=== PATIENT | female | born 1975 | race Caucasian/White ===

== ENCOUNTER 2016-07-06 12:45 | Emergency (ER) | payer SELFPAY ==
[~2016-07-06] VITALS: Ht 167.6 cm; Wt 56.7 kg
[2016-07-06 12:54] VITALS: BP 124/78
[2016-07-06] MEDS ORDERED: LORAZEPAM 2 MG/ML VIAL. IV ONE (13:45)
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
== END 2016-07-06 14:00 | disposition left against medical advice (07) ==
LOC: ER 12:45
DX: S30.0XXA Contusion of lower back and pelvis, initial encounter (principal); J44.9 Chronic obstructive pulmonary disease, unspecified; F41.9 Anxiety disorder, unspecified; F20.9 Schizophrenia, unspecified; F41.0 Panic disorder [episodic paroxysmal anxiety]; F17.210 Nicotine dependence, cigarettes, uncomplicated; F12.10 Cannabis abuse, uncomplicated; Z88.2 Allergy status to sulfonamides; Z91.030 Bee allergy status; T74.21XA Adult sexual abuse, confirmed, initial encounter; Y93.89 Activity, other specified; Y92.89 Other specified places as the place of occurrence of the external cause; Y99.8 Other external cause status
CPT/HCPCS: 99284

== ENCOUNTER 2017-11-30 12:50 | Emergency (ER) | payer MEDICARE, OTHER ==
[~2017-11-30] VITALS: Ht 167.6 cm; Wt 62.1 kg
[2017-11-30] MEDS ORDERED: fentaNYL PF VIAL 100 MCG/2 ML VIAL IV ONE ×2 (13:30→16:45)
--- NOTE | 2017-11-30 14:08 | PHYS DOC ---
Past Medical History Past Medical History: Anxiety, Bipolar, COPD, Schizophrenia, Other Additional Past Medical Histor: PANIC ATTACKS,PSYCHOTIC TENDENCIES,PARALYZED STOMACH Past Surgical History: Other Additional Past Surgical Histo: KIDNEY TRANSPLANT,FISTULA L ARM,FUNDIPLICATION Alcohol Use: None Drug Use: Marijuana Adult General Chief Complaint Chief Complaint: HIP PAIN HPI HPI Patient is a 42 year old female who presents with fall last Friday injuring her left hip and was seen at [facility] and x-rays were done and states that nothing was broken. Patient states that today she was sitting style on the floor and that she heard a pop in that left hip and began to have extreme pain. Review of Systems Review of Systems Constitutional: Denies fever or chills [] Eyes: Denies change in visual acuity, redness, or eye pain [] HENT: Denies nasal congestion or sore throat [] Respiratory: Denies cough or shortness of breath [] Cardiovascular: No additional information not addressed in HPI [] GI: Denies abdominal pain, nausea, vomiting, bloody stools or diarrhea [] : Denies dysuria or hematuria [] Musculoskeletal: Denies back pain or Left hip joint pain and bruising [] Integument: Denies rash or skin lesions [] Neurologic: Denies headache, focal weakness or sensory changes [] Endocrine: Denies polyuria or polydipsia [] All other systems were reviewed and found to be within normal limits, except as documented in this note. Current Medications Current Medications Current Medications Medications (Trade) Dose Ordered Sig/Niko Start Time Stop Time Status Last Admin Dose Admin Fentanyl Citrate (Fentanyl 2ml Vial) 25 mcg 1X ONCE 11/30/17 16:45 11/30/17 16:48 DC 11/30/17 16:45 25 MCG Allergies Allergies Allergies Coded Allergies Type Severity Reaction Last Updated Verified bee venom protein (honey bee) Allergy Unknown 07/06/16 Yes Sulfa (Sulfonamide Antibiotics) Adverse Reaction Intermediate STOMACH HURTS 07/06/16 Yes Physical Exam Physical Exam Constitutional: Well developed, well nourished, no acute distress, non-toxic appearance. [] HENT: Normocephalic, atraumatic, bilateral external ears normal, oropharynx moist, no oral exudates, nose normal. [] Eyes: PERRLA, EOMI, conjunctiva normal, no discharge. [] Neck: Normal range of motion, no tenderness, supple, no stridor. [] Cardiovascular:Heart rate regular rhythm, no murmur [] Lungs & Thorax: Bilateral breath sounds clear to auscultation [] Abdomen: Bowel sounds normal, soft, no tenderness, no masses, no pulsatile masses. [] Skin: Warm, dry, no erythema, no rash. [] Back: No tenderness, no CVA tenderness. [] Extremities: left hip tenderness with bruising of different healing stages, Inward rotation of left leg, no cyanosis, no clubbing, ROM in left hip is not intact, no edema. [] Neurologic: Alert and oriented X 3, normal motor function, normal sensory function, no focal deficits noted. [] Psychologic: Affect normal, judgement normal, mood normal. [] Current Patient Data Vital Signs Vital Signs Date Time Temp Pulse Resp B/P (MAP) Pulse Ox O2 Delivery O2 Flow Rate FiO2 11/30/17 16:45 16 11/30/17 13:26 98.3 80 149/77 (101) 94 Room Air 98.3 EKG EKG [] Radiology/Procedures Radiology/Procedures Left hip x ray Impressions: [address] [address] IMAGING REPORT Signed PATIENT: ELIZABETH ARAGON ACCOUNT: [id number] : 1975 LOCATION: ER AGE: 42 SEX: F EXAM STATUS: REG ER ORD. PHYSICIAN: TYSON NICOLE APRN REASON: pain, rotation PROCEDURE: HIP LEFT 2 VIEW 2 view study of the left hip Clinical indications: Fell 2 weeks ago. Patient felt a pop in the left hip today. Increased left hip pain. FINDINGS: No acute fracture or dislocation or osteolytic process is seen. No significant arthritic change is evident. IMPRESSION: No acute fracture. Electronically signed by: Tristan Darnell MD (11/30/2017 2:25 PM) [facility] DICTATED and SIGNED BY: TRISTAN DARNELL MD DATE: 11/30/17 [id number] [place] [address] IMAGING REPORT Signed PATIENT: ELIZABETH ARAGON ACCOUNT: [id number] : 1975 LOCATION: ER AGE: 42 SEX: F EXAM STATUS: REG ER ORD. PHYSICIAN: TYSON NICOLE APRN REASON: LEFT HIP INJURY S/P FALL, PAIN. PROCEDURE: CT LOWER EXTREMITY WO LEFT CT study of the left hip without contrast Clinical indications: Status post fall with left hip injury and pain. TECHNIQUE: Noncontrast helical CT scanning of the left hip was performed. Multiplanar 2-D reconstructions were generated. PQRS compliance Statement One or more of the following individualized dose reduction techniques were utilized for this study: 1. Automated exposure control 2. Adjustment of the mA and/or kV according to patient size 3. Use of iterative reconstruction technique FINDINGS: Patient motion artifact is seen. No acute fracture or dislocation is evident. No significant arthritic change of the left hip joint is seen. No osteolytic process is evident. There is a large subcutaneous soft tissue mass of the lateral aspect of the left hip which is partially hypodense and partially hyperdense consistent with a posttraumatic hematoma. This measures 11.2 cm in AP dimension and 7.8 cm in transverse dimension and 20.5 cm in vertical dimension. This is located superficial to the iliotibial band. There is associated subcutaneous soft tissue edema. There is no fluid distention of the greater trochanteric bursa. IMPRESSION: No acute fracture. Large subcutaneous soft tissue hematoma of the lateral aspect of the left hip. Electronically signed by: Tristan Darnell MD (11/30/2017 5:01 PM) [facility] DICTATED and SIGNED BY: TRISTAN DARNELL MD DATE: 11/30/171652 Course & Med Decision Making Course & Med Decision Making Patient has a history of polycystic kidney disease of which she had a transplant and lost the transplant a year ago and now is on dialysis Friday, Friday, Friday. Patient's other history is hypertension, bipolar, schizophrenia, anxiety, gastroparesis. Upon walking into the room the patient is holding a stuffed animal and is very anxious and states that she did take 2 Klonopin before coming because she knew she was going be very anxious. She states she rates her pain 10 on 10. Upon examination patient has left hip and outer left upper thigh bruising that appears in different stages of healing. Patient's left hip and leg is rotated inward. There is focal left hip tenderness with palpation. The patient will not move the leg or the hip due to pain but does wiggle her toes and her foot. Patient has a popliteal pulse and less than 3 second cap refill with a warm extremity but the left foot pulse is weak. Patient is given 25 mcg fentanyl and a left hip x-ray is ordered. Patient denies any numbness or tingling and there is no swelling to the extremity. Skin is pink warm and dry. Patient is alert and oriented. Left hip x-ray shows no dislocation or fracture. Left hip CT shows no acute findings. Left hip showed CT just shows the posttraumatic injury bruising. Patient to be sent home and is to follow-up with her primary care physician. [] Dragon Disclaimer Dragon Disclaimer This electronic medical record was generated, in whole or in part, using a voice recognition dictation system. Departure Departure Impression: Primary Impression: Hip pain Disposition: HOME, SELF-CARE Condition: STABLE Referrals: UNKNOWN PCP NAME (PCP) KERON GHOTRA MD Patient Instructions: Hip Pain Additional Instructions: Follow-up with her primary care physician. Scripts Oxycodone Hcl (OXYCODONE HCL) 5 Mg Capsule 5 MG PO Q6HRS PRN for PAIN, #5 TAB 0 Refills Prov: TYSON NICOLE APRN 11/30/17 Problem Qualifiers Primary Impression: Hip pain Laterality: left Qualified Codes: M25.552 - Pain in left hip TYSON NICOLE APRN Nov 30, 2017 14:08
--- NOTE | 2017-11-30 14:28 | RAD ---
2 view study of the left hip Clinical indications: Fell 2 weeks ago. Patient felt a pop in the left hip today. Increased left hip pain. FINDINGS: No acute fracture or dislocation or osteolytic process is seen. No significant arthritic change is evident. IMPRESSION: No acute fracture. Electronically signed by: Lauro Darnell MD (11/30/2017 2:25 PM) [facility]
--- NOTE | 2017-11-30 17:05 | RAD ---
CT study of the left hip without contrast Clinical indications: Status post fall with left hip injury and pain. TECHNIQUE: Noncontrast helical CT scanning of the left hip was performed. Multiplanar 2-D reconstructions were generated. PQRS compliance Statement One or more of the following individualized dose reduction techniques were utilized for this study: 1. Automated exposure control 2. Adjustment of the mA and/or kV according to patient size 3. Use of iterative reconstruction technique FINDINGS: Patient motion artifact is seen. No acute fracture or dislocation is evident. No significant arthritic change of the left hip joint is seen. No osteolytic process is evident. There is a large subcutaneous soft tissue mass of the lateral aspect of the left hip which is partially hypodense and partially hyperdense consistent with a posttraumatic hematoma. This measures 11.2 cm in AP dimension and 7.8 cm in transverse dimension and 20.5 cm in vertical dimension. This is located superficial to the iliotibial band. There is associated subcutaneous soft tissue edema. There is no fluid distention of the greater trochanteric bursa. IMPRESSION: No acute fracture. Large subcutaneous soft tissue hematoma of the lateral aspect of the left hip. Electronically signed by: Lauro Darnell MD (11/30/2017 5:01 PM) [facility]
[2017-11-30] MEDS ORDERED: OXYC5CAP PO (17:20)
[2017-11-30 17:22] VITALS: BP 148/85
== END 2017-11-30 17:46 | disposition home or self-care (01) ==
LOC: ER 12:50
DX: M25.552 Pain in left hip (principal); J44.9 Chronic obstructive pulmonary disease, unspecified; F31.9 Bipolar disorder, unspecified; F20.9 Schizophrenia, unspecified; Z88.2 Allergy status to sulfonamides; Z91.030 Bee allergy status; X50.9XXA Other and unspecified overexertion or strenuous movements or postures, initial encounter; Y93.89 Activity, other specified; Y92.89 Other specified places as the place of occurrence of the external cause; Y99.8 Other external cause status
CPT/HCPCS: 73502; 73700; 96374; 96376; 99284; J3010

== ENCOUNTER 2018-05-30 11:15 | Emergency (ER) | payer MEDICARE, OTHER ==
[~2018-05-30] VITALS: Ht 167.6 cm; Wt 56.7 kg
[~2018-05-30 11:15] MED LIST: OXYC5CAP PO
[2018-05-30 11:45] VITALS: BP 139/81
[2018-05-30] MEDS ORDERED: PRED50TA PO (11:55)
[2018-05-30] MEDS ORDERED: AMOX875T PO (11:55)
--- NOTE | 2018-05-30 11:56 | PHYS DOC ---
Past Medical History Past Medical History: Anxiety, Bipolar, COPD, Schizophrenia, Other Additional Past Medical Histor: PANIC ATTACKS,PSYCHOTIC TENDENCIES,PARALYZED STOMACH Past Surgical History: Other Additional Past Surgical Histo: KIDNEY TRANSPLANT,FISTULA L ARM,FUNDIPLICATION Alcohol Use: None Drug Use: Marijuana Adult General Chief Complaint Chief Complaint: OTHER COMPLAINTS [facility] HPI Patient is a 42 year old female who presents with multiple complaints. Patient states that she was was to be seen by ENT and have a biopsy done of her throat. She states that she was unable to go to that appointment and is requesting a new referral to ENT. She states that she also has a sore throat and earache. She states that this is been worsening over the past few days to the right side. The patient also needs a refill of prednisone to help with her COPD. She states that she has been out of steroids for quite a while. Review of Systems Review of Systems Constitutional: Denies fever or chills [] Eyes: Denies change in visual acuity, redness, or eye pain [] HENT: See history of present illness Respiratory: See history of present illness Cardiovascular: No additional information not addressed in HPI [] GI: Denies abdominal pain, nausea, vomiting, bloody stools or diarrhea [] : Denies dysuria or hematuria [] Musculoskeletal: Denies back pain or joint pain [] Integument: Denies rash or skin lesions [] Neurologic: Denies headache, focal weakness or sensory changes [] Endocrine: Denies polyuria or polydipsia [] All other systems were reviewed and found to be within normal limits, except as documented in this note. Allergies Allergies Allergies Coded Allergies Type Severity Reaction Last Updated Verified bee venom protein (honey bee) Allergy Unknown 07/06/16 Yes Sulfa (Sulfonamide Antibiotics) Adverse Reaction Intermediate STOMACH HURTS 07/06/16 Yes Physical Exam Physical Exam Constitutional: Well developed, well nourished, no acute distress, non-toxic appearance. [] HENT: Normocephalic, atraumatic, bilateral tympanic membranes normal, oropharynx moist, no oral exudates, nose normal. [] Eyes: PERRLA, EOMI, conjunctiva normal, no discharge. [] Neck: Normal range of motion, no tenderness, supple, no stridor. [] Cardiovascular:Heart rate regular rhythm, no murmur [] Lungs & Thorax: Bilateral breath sounds clear to auscultation [] Abdomen: Bowel sounds normal, soft, no tenderness, no masses, no pulsatile masses. [] Skin: Warm, dry, no erythema, no rash. [] Back: No tenderness, no CVA tenderness. [] Extremities: No tenderness, no cyanosis, no clubbing, ROM intact, no edema. [] Neurologic: Alert and oriented X 3, normal motor function, normal sensory function, no focal deficits noted. [] Psychologic: Affect normal, judgement normal, mood normal. [] EKG EKG [] Radiology/Procedures Radiology/Procedures [] Course & Med Decision Making Course & Med Decision Making Pertinent Labs and Imaging studies reviewed. (See chart for details) []The patient is also requesting Diflucan. She states when she takes antibiotics she gets a yeast infection. Dragon Disclaimer Dragon Disclaimer This electronic medical record was generated, in whole or in part, using a voice recognition dictation system. Departure Departure Impression: Primary Impression: Sore throat Additional Impression: Medication refill Referrals: UNKNOWN PCP NAME (PCP) DANDY CERRATO MD Patient Instructions: Sore Throat Additional Instructions: Take the medication as directed. Follow-up with ENT for the biopsy that you missed. Follow-up with your primary care provider for future healthcare needs. Scripts Fluconazole (DIFLUCAN) 150 Mg Tablet 1 TAB PO ONCE for yeast, #1 TAB 1 Refill Prov: HEVER PATEL APRN 05/30/18 Amoxicillin (AMOXICILLIN) 875 Mg Tablet 1 TAB PO BID for pharyngitis, #20 TAB Prov: HEVER PATEL APRN 05/30/18 Prednisone (PREDNISONE) 50 Mg Tablet 1 TAB PO DAILY for copd, #5 TAB Prov: HEVER PATEL APRN 05/30/18 Problem Qualifiers HEVER PATEL APRN May 30, 2018 11:56
[2018-05-30] MEDS ORDERED: FLUC150T PO (12:13)
== END 2018-05-30 12:15 | disposition home or self-care (01) ==
LOC: ER 11:15
DX: J02.9 Acute pharyngitis, unspecified (principal); Z76.0 Encounter for issue of repeat prescription; J44.9 Chronic obstructive pulmonary disease, unspecified; F31.9 Bipolar disorder, unspecified; F20.9 Schizophrenia, unspecified; Z88.2 Allergy status to sulfonamides; Z91.030 Bee allergy status
CPT/HCPCS: 99283

== ENCOUNTER 2018-08-06 11:26 | Emergency (ER) | payer MEDICARE, OTHER ==
[~2018-08-06 11:26] MED LIST changes: +AMOX875T PO; +FLUC150T PO; +PRED50TA PO
== END 2018-08-06 11:36 | disposition left against medical advice (07) ==
LOC: ER 11:26
DX: T76.21XA Adult sexual abuse, suspected, initial encounter (principal); Z53.21 Procedure and treatment not carried out due to patient leaving prior to being seen by health care provider

== ENCOUNTER 2018-12-12 16:11 | Inpatient (IN) | payer MEDICARE ==
[~2018-12-12] VITALS: Ht 162.6 cm; Wt 67.3 kg
[2018-12-12 17:04] LABS: BASO # 0.1 x10^3/uL (0.0-0.2); BASO % 2 % (0-3); EOS # 0.2 x10^3/uL (0.0-0.7); EOS % 3 % (0-3); HEMOGLOBIN 9.2 g/dL (12.0-15.5); LYMPH # 0.9 x10^3/uL (1.0-4.8); LYMPH % 15 % (24-48); MEAN CORPUSCULAR HEMOGLOBIN 33 pg (25-35); MEAN CORPUSCULAR HGB CONC 33 g/dL (31-37); MEAN CORPUSCULAR VOLUME 99 fL (79-100); MONO # 0.4 x10^3/uL (0.0-1.1); MONO % 6 % (0-9); NEUT # 4.6 x10^3/uL (1.8-7.7); NEUT % 75 % (31-73); PLATELET COUNT 222 x10^3/uL (140-400); RED BLOOD COUNT 2.82 x10^6/uL (3.50-5.40); RED CELL DISTRIBUTION WIDTH 19.8 % (11.5-14.5); WHITE BLOOD COUNT 6.2 x10^3/uL (4.0-11.0)
[2018-12-12 17:22] LABS: ALBUMIN 3.6 g/dL (3.4-5.0); ALBUMIN/GLOBULIN RATIO 1.1 (1.0-1.7); CALCIUM 6.7 mg/dL (8.5-10.1); CREATININE 16.4 mg/dL (0.6-1.0); GFR 2.4; MAGNESIUM 2.1 mg/dL (1.8-2.4); TOTAL BILIRUBIN 0.4 mg/dL (0.2-1.0); TOTAL PROTEIN 6.8 g/dL (6.4-8.2)
[2018-12-12 17:25] LABS: POTASSIUM 7.4 mmol/L (3.5-5.1)
--- NOTE | 2018-12-12 17:45 | PHYS DOC ---
Past Medical History Past Medical History: Anxiety, Bipolar, COPD, Renal Failure, Schizophrenia, Other Additional Past Medical Histor: PANIC ATTACKS,PSYCHOTIC TENDENCIES,PARALYZED STOMACH (IVAN PEDROZA APRN) Past Surgical History: No Surgical History, Other Additional Past Surgical Histo: KIDNEY TRANSPLANT,FISTULA L ARM,FUNDIPLICATION (IVAN PEDROZA APRN) Alcohol Use: None Drug Use: Marijuana (IVAN PEDROZA APRN) Attending Signature I have participated in the care of this patient and I have reviewed and agree with all pertinent clinical information above including history, exam, and recommendations. (JAE BOWENS MD) Adult General Chief Complaint Chief Complaint: SHORTNESS OF BREATH HPI HPI Patient is a 43 year old female with history of anxiety, bipolar, COPD, schizophrenia, kidney transplant 16 years ago, end-stage renal disease on dialysis Friday last dialyzed a week ago who presents to the ED today with multiple complaints including feeling fluid overloaded with short ness of breath, bilateral lower extremity weakness, diarrhea symptoms for one week. She states she's been unable to go to dialysis because of ride issues. Patient denies any chest pain. (IVAN PEDROZA APRN) Review of Systems Review of Systems Constitutional: Denies fever or chills [] Eyes: Denies change in visual acuity, redness, or eye pain [] HENT: Denies nasal congestion or sore throat [] Respiratory: Reports shortness of breath. Denies cough Cardiovascular: No additional information not addressed in HPI [] GI: Denies abdominal pain, nausea, vomiting, bloody stools or diarrhea [] : Denies dysuria or hematuria [] Musculoskeletal: Reports bilateral lower extremity weakness. Denies back pain Integument: Denies rash or skin lesions [] Neurologic: Denies headache, focal weakness or sensory changes [] Endocrine: ESRD-dialysis All other systems were reviewed and found to be within normal limits, except as documented in this note. (IVAN PEDROZA APRN) Current Medications Current Medications Current Medications Medications (Trade) Dose Ordered Sig/Niko Start Time Stop Time Status Last Admin Dose Admin Albuterol Sulfate (Ventolin Neb Soln) 2.5 mg PRN Q4HRS PRN 12/12/18 18:00 12/12/18 18:15 2.5 MG Alprazolam (Xanax) 0.5 mg PRN Q8HRS PRN 12/12/18 18:00 12/12/18 18:25 0.5 MG Calcium Carbonate/ Glycine (Tums) 500 mg PRN AFTMEALHC PRN 12/12/18 18:00 Calcium Gluconate (Calcium Gluconate) 1,000 mg 1X ONCE 12/12/18 18:00 12/12/18 18:01 DC 12/12/18 18:18 1,000 MG Clonidine HCl (Catapres) 0.1 mg PRN Q1HR PRN 12/12/18 18:00 Dextrose (Dextrose 50%-Water Syringe) 25 gm 1X ONCE 12/12/18 18:00 12/12/18 18:01 DC 12/12/18 18:18 25 GM Diphenhydramine HCl (Benadryl) 25 mg PRN QHS PRN 12/12/18 18:00 12/12/18 18:25 25 MG Morphine Sulfate (Morphine Sulfate) 1 mg PRN Q2HR PRN 12/12/18 18:00 Ondansetron HCl (Zofran) 4 mg PRN Q6HRS PRN 12/12/18 18:00 Oxycodone HCl (Roxicodone) 5 mg PRN Q6HRS PRN 12/12/18 18:00 Sodium Bicarbonate (Sodium Bicarb Adult 8.4% Syr) 50 meq 1X ONCE 12/12/18 18:00 12/12/18 18:01 DC 12/12/18 18:25 50 MEQ (JAE BOWENS MD) Allergies Allergies Allergies Coded Allergies Type Severity Reaction Last Updated Verified bee venom protein (honey bee) Allergy Intermediate 12/12/18 Yes metoclopramide Allergy Intermediate 12/12/18 Yes Sulfa (Sulfonamide Antibiotics) Adverse Reaction Intermediate STOMACH HURTS 07/06/16 Yes (JAE BOWENS MD) Physical Exam Physical Exam Constitutional: Well developed, well nourished, no acute distress, non-toxic appearance. [] HENT: Normocephalic, atraumatic, bilateral external ears normal, oropharynx moist, no oral exudates, nose normal. [] Eyes: PERRLA, EOMI, conjunctiva normal, no discharge. [] Neck: Normal range of motion, no tenderness, supple, no stridor. [] Cardiovascular: Left upper chest with the dialysis catheter. Heart rate regular rhythm, no murmur [] Lungs & Thorax: Bilateral breath sounds clear to auscultation [] Abdomen: Bowel sounds normal, soft, no tenderness, no masses, no pulsatile masses. [] Skin: Warm, dry, no erythema, no rash. [] Back: No tenderness, no CVA tenderness. [] Extremities: No tenderness, no cyanosis, no clubbing, ROM intact, no edema. [] Neurologic: Alert and oriented X 3, normal motor function, normal sensory function, no focal deficits noted. [] Psychologic: Patient appears restless, moving around in the room with no difficulties (IVAN PEDROZA APRN) Current Patient Data Vital Signs Vital Signs Date Time Temp Pulse Resp B/P (MAP) Pulse Ox O2 Delivery O2 Flow Rate FiO2 12/12/18 17:53 86 26 151/96 (114) 99 Nasal Cannula 3.0 12/12/18 16:20 98.1 98.1 (JAE BOWENS MD) Lab Values Laboratory Tests Test 12/12/18 16:50 White Blood Count 6.2 x10^3/uL (4.0-11.0) Red Blood Count 2.82 x10^6/uL (3.50-5.40) L Hemoglobin 9.2 g/dL (12.0-15.5) L Hematocrit 28.0 % (36.0-47.0) L Mean Corpuscular Volume 99 fL (79-100) Mean Corpuscular Hemoglobin 33 pg (25-35) Mean Corpuscular Hemoglobin Concent 33 g/dL (31-37) Red Cell Distribution Width 19.8 % (11.5-14.5) H Platelet Count 222 x10^3/uL (140-400) Neutrophils (%) (Auto) 75 % (31-73) H Lymphocytes (%) (Auto) 15 % (24-48) L Monocytes (%) (Auto) 6 % (0-9) Eosinophils (%) (Auto) 3 % (0-3) Basophils (%) (Auto) 2 % (0-3) Neutrophils # (Auto) 4.6 x10^3/uL (1.8-7.7) Lymphocytes # (Auto) 0.9 x10^3/uL (1.0-4.8) L Monocytes # (Auto) 0.4 x10^3/uL (0.0-1.1) Eosinophils # (Auto) 0.2 x10^3/uL (0.0-0.7) Basophils # (Auto) 0.1 x10^3/uL (0.0-0.2) Sodium Level 139 mmol/L (136-145) Potassium Level 7.4 mmol/L (3.5-5.1) *H Chloride Level 96 mmol/L (98-107) L Carbon Dioxide Level 18 mmol/L (21-32) L Anion Gap 25 (6-14) H Blood Urea Nitrogen 113 mg/dL (7-20) H Creatinine 16.4 mg/dL (0.6-1.0) H Estimated GFR (Cockcroft-Gault) 2.4 BUN/Creatinine Ratio 7 (6-20) Glucose Level 95 mg/dL (70-99) Calcium Level 6.7 mg/dL (8.5-10.1) L Magnesium Level 2.1 mg/dL (1.8-2.4) Total Bilirubin 0.4 mg/dL (0.2-1.0) Aspartate Amino Transferase (AST) 12 U/L (15-37) L Alanine Aminotransferase (ALT) 10 U/L (14-59) L Alkaline Phosphatase 65 U/L (46-116) Creatine Kinase 175 U/L (26-192) Creatine Kinase MB (Mass) 4.2 ng/mL (0.0-3.6) H Creatine Kinase MB Relative Index 2.4 % (0-4) Troponin I Quantitative < 0.017 ng/mL (0.000-0.055) ZM-Oaa-Y-Type Natriuretic Peptide 8143 pg/mL (0-124) H Total Protein 6.8 g/dL (6.4-8.2) Albumin 3.6 g/dL (3.4-5.0) Albumin/Globulin Ratio 1.1 (1.0-1.7) Thyroid Stimulating Hormone (TSH) 4.774 uIU/mL (0.358-3.74) H Laboratory Tests 12/12/18 16:50 Laboratory Tests 12/12/18 16:50 (JAE BOWENS MD) EKG EKG [address] Wesley sinus rhythm heart rate 85 no STEMI (IVAN PEDROZA APRN) Radiology/Procedures Radiology/Procedures []PROCEDURE: PORTABLE CHEST 1V Single view chest dated 12/12/2018. No comparison available. CLINICAL INDICATION: Shortness of breath. FINDINGS: Single upright portable exam performed. Heart and mediastinal contours within normal limits. There is a dual lumen dialysis catheter in place. Lungs are somewhat hyperinflated but otherwise clear. No consolidation or pleural effusion. Old healed rib fractures on the right. No pneumothorax. IMPRESSION: No acute radiographic abnormality. Electronically signed by: Rg Devine MD (12/12/2018 6:50 PM) [facility] DICTATED and SIGNED BY: RG DEVINE MD DATE: 12/12/18 185 (IVAN PEDROZA APRN) Course & Med Decision Making Course & Med Decision Making Pertinent Labs and Imaging studies reviewed. (See chart for details) This is a 43-year-old female patient on dialysis who presents to the ED today complaining of shortness of breath, feeling fluid overloaded, weakness to bilateral lower extremities. Patient was last dialyzed a week ago. CBC with a normal WBC, hemoglobin of 9.2, hematocrit of 28, CMP with potassium 7.4, no EKG changes, creatinine 16.4, BUN 113 glucose is 95, anion gap is 25 BNP 8143, chest x-ray is negative for any acute findings. Spoke with Dr. Alvarado nephrology patient will be dialyzed today Spoke with Dr. [place] who accepted patient for admission (IVAN PEDROZA APRN) Dragon Disclaimer Dragon Disclaimer This electronic medical record was generated, in whole or in part, using a voice recognition dictation system. (IVAN PEDROZA APRN) Departure Departure Impression: Primary Impression: Hyperkalemia Additional Impression: ESRD (end stage renal disease) on dialysis Disposition: ADMITTED INPATIENT Condition: STABLE Referrals: TRISTON GUERRERO (PCP) Problem Qualifiers IVAN PEDROZA APRN Dec 12, 2018 17:45 JAE BOWENS MD Dec 12, 2018 20:41
[2018-12-12] MEDS ORDERED: CALCIUM GLUCONATE 1,000 MG/10 ML VIAL. IVP ONE (18:00)
[2018-12-12] MEDS ORDERED: oxyCODONE IR 5 MG TABLET PO PRN (18:00)
[2018-12-12] MEDS ORDERED: CALCIUM CARBONATE 500 MG TAB.CHEW PO PRN (18:00)
[2018-12-12] MEDS ORDERED: diphenhydrAMINE HCL 25 MG CAPSULE PO PRN (18:00)
[2018-12-12] MEDS ORDERED: SODIUM BICARB ADULT 8.4% 50 MEQ/50 ML DISP.SYRIN. IV ONE (18:00)
[2018-12-12] MEDS ORDERED: MORPHINE SULFATE 2 MG/ML VIAL. IV PRN (18:00)
[2018-12-12] MEDS ORDERED: DEXTROSE 50% 25 GM / 50ML DISP.SYRIN. IV ONE (18:00)
[2018-12-12] MEDS ORDERED: ALBUTEROL SULFATE 2.5 MG/3 ML NEBU. NEB PRN (18:00)
[2018-12-12] MEDS ORDERED: ONDANSETRON PF 4 MG/2 ML VIAL. IV PRN ×2 (18:00→18:45)
[2018-12-12] MEDS ORDERED: INSULIN REGULAR 100 UNIT/ML 3ML VIAL. IV ONE (18:15)
[2018-12-12] MEDS: ALPRAZolam 0.5 MG TABLET PO PRN (18:24)
--- NOTE | 2018-12-12 18:53 | RAD ---
Single view chest dated 12/12/2018. No comparison available. CLINICAL INDICATION: Shortness of breath. FINDINGS: Single upright portable exam performed. Heart and mediastinal contours within normal limits. There is a dual lumen dialysis catheter in place. Lungs are somewhat hyperinflated but otherwise clear. No consolidation or pleural effusion. Old healed rib fractures on the right. No pneumothorax. IMPRESSION: No acute radiographic abnormality. Electronically signed by: Rg Devine MD (12/12/2018 6:50 PM) [facility]
[2018-12-12] MEDS ORDERED: IV NORMAL SALINE 1000ML BAG 1,000 ML IV PRN ×2 (19:00)
[2018-12-12] MEDS ORDERED: ALBUMIN HUMAN 25% 200 ML IV PRN (19:00)
[2018-12-12] MEDS ORDERED: DIALYSIS PATIENT. MC PRN ×2 (19:15)
[2018-12-12 19:25] VITALS: BP 162/82
--- NOTE | 2018-12-12 19:25 | NUR ---
pt admitted to room 107 from ED at this time. BP elevated but otherwise VSS while on 3L/NC. pt alert and oriented x4 but forgetful, very restless and tearful. provided pt with ice chips and snack before dialysis to start, "it'll make me feel better." now pt on dialysis with dialysis nurse at bedside, pt's eyes closed and she appears more comfortable at this time. will pass on in report, will continue to closely monitor.
[2018-12-12 20:00] VITALS: BP 161/90
[2018-12-12 21:00] VITALS: BP 146/97
[2018-12-12 22:00] VITALS: BP 137/99
[2018-12-12 23:00] VITALS: BP 176/106
[2018-12-13] VITALS (14 sets, daily range): BP systolic 149–196; BP diastolic 71–119
[2018-12-13] MEDS: cloNIDine HCL 0.1 MG TABLET PO PRN ×2 (02:08→07:40)
[2018-12-13 04:37] LABS: BASO % 1 % (0-3); EOS # 0.1 x10^3/uL (0.0-0.7); EOS % 3 % (0-3); HEMOGLOBIN 9.6 g/dL (12.0-15.5); LYMPH # 0.9 x10^3/uL (1.0-4.8); LYMPH % 21 % (24-48); MEAN CORPUSCULAR HEMOGLOBIN 33 pg (25-35); MEAN CORPUSCULAR HGB CONC 33 g/dL (31-37); MEAN CORPUSCULAR VOLUME 98 fL (79-100); MONO # 0.4 x10^3/uL (0.0-1.1); MONO % 9 % (0-9); NEUT # 2.7 x10^3/uL (1.8-7.7); NEUT % 66 % (31-73); PLATELET COUNT 193 x10^3/uL (140-400); RED BLOOD COUNT 2.96 x10^6/uL (3.50-5.40); RED CELL DISTRIBUTION WIDTH 19.2 % (11.5-14.5); WHITE BLOOD COUNT 4.1 x10^3/uL (4.0-11.0)
[2018-12-13 04:48] LABS: CREATININE 8.5 mg/dL (0.6-1.0); GFR 5.1; POTASSIUM 4.4 mmol/L (3.5-5.1)
[2018-12-13] MEDS ORDERED: QUET300T7 PO (07:35)
[2018-12-13] MEDS ORDERED: CLONAZEPAM1 MG PO (07:35)
[2018-12-13] MEDS ORDERED: TRAZ-86 PO (07:35)
[2018-12-13] MEDS ORDERED: ROPI0.25 PO (07:35)
--- NOTE | 2018-12-13 07:54 | EKG ---
[facility] [address] [place] [address] Test Date: 2018-12-12 Test Time: 16:35:44 Pat Name: ELIZABETH ARAGON Department: Room: Gender: F Medical Collections: : [id number] Requested By: IVAN PEDROZA Order Number: [id number] Reading MD: Measurements Intervals [place] Rate: 85 P: 47 DC: 142 QRS: 43 QRSD: 84 T: 61 QT: 422 QTc: 502 Interpretive Statements SINUS RHYTHM PROLONGED QT NO SPECIFIC ECG ABNORMALITIES RI6.01 Unconfirmed report No previous ECG available for comparison
[2018-12-13] MEDS: ALPRAZolam 0.5 MG TABLET PO PRN ×2 (08:19→16:21)
[2018-12-13] MEDS ORDERED: traZODone 100 MG TABLET. PO PRN ×2 (08:30)
[2018-12-13] MEDS: clonazePAM 0.5 MG TABLET PO PRN ×2 (11:09→17:47)
[2018-12-13] MEDS ORDERED: NICOTINE 21MG PATCH. TD PRN (11:30)
--- NOTE | 2018-12-13 12:38 | PDOC2 ---
CONSULT Date of Consult Date of Consult DATE: 12/13/18 TIME: 12:30 Reason for Consult Reason for Consult: HIGH K, SOB AND ESRD Referring Physician Referring Physician: BISMARK Identification/Chief Complaint Chief Complaint SOB AND WEAKNESS Source Source: Chart review History of Present Illness Reason for Visit: THIS IS A 43 YR OLD ESRD PT WITH SOB. SHE IS NOTED TO HAVE SEVERE HYPERKALEMIA AND LABS C/W HER ESRD. SHE HAS SKIPPED HER HD FOR ONE WEEK. SHE HAS HAD DIARRHEA FOR ABOUT A WEEK WELL. STATES ITS DUE TO TRANSPORTATION ISSUES. ON HD NOW FOR ABOUT 3 YEARS PRIOR TO THAT SHE HAS HAD A RENAL TX WHICH WAS DONE 16 YEARS AGO. SHE CANNOT TELL ME WHY HER KIDNEYS FAILED TO START WITH Past Medical History Past Medical History NON COMPLIANCE, FAILED RENAL TX Cardiovascular: HTN Pulmonary: COPD Heme/Onc: Anemia NOS Musculoskeletal: Muscle atrophy, Weakness Renal/: Chronic renal failure, Other (ANURIA, HX OF RENAL TX) Endocrine: Hyperparathyroidism Past Surgical History Past Surgical History HX OF RENAL TX Family History Family History: Hypertension Social History 1 pack per day ALCOHOL: rare Drugs: Other (UNKNOWN WHAT SHE IS DOING NOW IF ANYTHING BUT STATES THAT SHE HAS DONE SOME DRUGS IN THE PAST) Current Problem List Problem List Problems Medical Problems: (1) ESRD (end stage renal disease) on dialysis Status: Acute (2) Hyperkalemia Status: Acute Current Medications Current Medications Current Medications Calcium Gluconate (Calcium Gluconate) 1,000 mg 1X ONCE IVP Last administered on 12/12/18at 18:18; Start 12/12/18 at 18:00; Stop 12/12/18 at 18:01; Status DC Sodium Bicarbonate (Sodium Bicarb Adult 8.4% Syr) 50 meq 1X ONCE IV Last administered on 12/12/18at 18:25; Start 12/12/18 at 18:00; Stop 12/12/18 at 18:01; Status DC Dextrose (Dextrose 50%-Water Syringe) 25 gm 1X ONCE IV Last administered on 12/12/18at 18:18; Start 12/12/18 at 18:00; Stop 12/12/18 at 18:01; Status DC Insulin Human Regular (HumuLIN R VIAL) 10 unit 1X ONCE IV Last administered on 12/12/18at 18:18; Start 12/12/18 at 18:15; Stop 12/12/18 at 18:16; Status DC Oxycodone HCl (Roxicodone) 5 mg PRN Q6HRS PRN PO PAIN; Start 12/12/18 at 18:00 Ondansetron HCl (Zofran) 4 mg PRN Q6HRS PRN IV NAUSEA/VOMITING Last administered on 12/13/18at 07:40; Start 12/12/18 at 18:00 Diphenhydramine HCl (Benadryl) 25 mg PRN QHS PRN PO INSOMNIA Last administered on 12/12/18at 18:25; Start 12/12/18 at 18:00 Clonidine HCl (Catapres) 0.1 mg PRN Q1HR PRN PO HYPERTENSION Last administered on 12/13/18at 07:40; Start 12/12/18 at 18:00 Morphine Sulfate (Morphine Sulfate) 1 mg PRN Q2HR PRN IV PAIN; Start 12/12/18 at 18:00 Calcium Carbonate/ Glycine (Tums) 500 mg PRN AFTMEALHC PRN PO INDIGESTION; Start 12/12/18 at 18:00 Alprazolam (Xanax) 0.5 mg PRN Q8HRS PRN PO ANXIETY / AGITATION Last administered on 12/13/18at 08:19; Start 12/12/18 at 18:00 Albuterol Sulfate (Ventolin Neb Soln) 2.5 mg PRN Q4HRS PRN NEB SHORTNESS OF BREATH Last administered on 12/12/18at 18:15; Start 12/12/18 at 18:00 Ondansetron HCl (Zofran) 4 mg PRN Q8HRS PRN IV NAUSEA/VOMITING; Start 12/12/18 at 18:45; Stop 12/13/18 at 18:44; Status UNV Sodium Chloride 1,000 ml @ 1,000 mls/hr Q1H PRN IV hypotension; Start 12/12/18 at 19:00; Stop 12/13/18 at 02:00; Status DC Albumin Human 200 ml @ 200 mls/hr 1X PRN PRN IV Hypotension; Start 12/12/18 at 19:00; Stop 12/13/18 at 02:00; Status DC Sodium Chloride 1,000 ml @ 400 mls/hr Q2H30M PRN IV PATENCY; Start 12/12/18 at 19:00; Stop 12/13/18 at 02:00; Status DC Info (PHARMACY MONITORING -- do not chart) 1 each PRN DAILY PRN MC SEE COMMENTS; Start 12/12/18 at 19:15; Status UNV Info (PHARMACY MONITORING -- do not chart) 1 each PRN DAILY PRN MC SEE COMMENTS; Start 12/12/18 at 19:15 Quetiapine Fumarate (SEROquel XR) 300 mg QHS PO ; Start 12/13/18 at 21:00 Ropinirole HCl (Requip) 0.25 mg HS PO ; Start 12/13/18 at 21:00 Trazodone HCl (Desyrel) 100 mg PRN QHS PRN PO INSOMNIA; Start 12/13/18 at 08:30 Trazodone HCl (Desyrel) 200 mg PRN QHS PRN PO INSOMNIA; Start 12/13/18 at 08:30 Clonazepam (KlonoPIN) 1 mg PRN TID PRN PO ANXIETY / AGITATION Last administered on 12/13/18at 11:09; Start 12/13/18 at 08:30 Nicotine (Nicoderm Cq 21mg) 1 patch PRN DAILY PRN TD SMOKING CESSATION Last administered on 12/13/18at 11:27; Start 12/13/18 at 11:30 Active Scripts Active Reported Clonazepam 1 Mg Tablet 1 Mg PO TID PRN PRN Trazodone Hcl 100 Mg Tablet 200 Mg PO PRN QHS PRN Trazodone Hcl 100 Mg Tablet 1 Tab PO PRN QHS PRN Requip (Ropinirole Hcl) 0.25 Mg Tablet 0.25 Mg PO HS Seroquel Xr (Quetiapine Fumarate) 300 Mg Tab.er.24h 1 Tab PO QHS Allergies Allergies: Coded Allergies: bee venom protein (honey bee) (Verified Allergy, Intermediate, 12/12/18) metoclopramide (Verified Allergy, Intermediate, 12/12/18) Sulfa (Sulfonamide Antibiotics) (Verified Adverse Reaction, Intermediate, STOMACH HURTS, 07/06/16) ROS General: YES: Fatigue, Malaise, Appetite PSYCHOLOGICAL ROS: YES: Anxiety, Depression Eyes: Yes Decreased vision HEENT: YES: Heacaches Respiratory: YES: Cough, Orthopnea, Shortness of breath, SOB with excertion Cardiovascular: yes Lt Headedness Gastrointestinal: Yes Nausea, Yes Diarrhea Genitourinary: YES Other (ANURIA) Musculoskeletal: Yes Joint Stiffness, Yes Muscular Weakness Neurological: Yes Weakness Skin: Yes Dry Skin Physical Exam General: Alert, Oriented X3, Cooperative, No acute distress HEENT: Atraumatic, PERRLA Lungs: Clear to auscultation Heart: Regular rate, Normal S1, Normal S2, No murmurs Abdomen: Normal bowel sounds, Soft, No tenderness Extremities: No cyanosis Skin: No breakdown Neuro: Normal speech, Sensation intact Psych/Mental Status: Mental status NL, Mood NL MUSCULOSKELETAL: No joint tenderness, No deformity, No swelling Vitals VITALS Vital Signs Date Time Temp Pulse Resp B/P (MAP) Pulse Ox O2 Delivery O2 Flow Rate FiO2 12/13/18 11:17 76 16 163/95 (117) Nasal Cannula 3.0 12/13/18 07:48 100 12/13/18 07:08 99.0 99.0 Labs Labs Laboratory Tests Test 12/12/18 16:50 12/12/18 22:00 12/13/18 04:00 White Blood Count 6.2 x10^3/uL (4.0-11.0) 4.1 x10^3/uL (4.0-11.0) Red Blood Count 2.82 x10^6/uL (3.50-5.40) 2.96 x10^6/uL (3.50-5.40) Hemoglobin 9.2 g/dL (12.0-15.5) 9.6 g/dL (12.0-15.5) Hematocrit 28.0 % (36.0-47.0) 29.0 % (36.0-47.0) Mean Corpuscular Volume 99 fL (79-100) 98 fL (79-100) Mean Corpuscular Hemoglobin 33 pg (25-35) 33 pg (25-35) Mean Corpuscular Hemoglobin Concent 33 g/dL (31-37) 33 g/dL (31-37) Red Cell Distribution Width 19.8 % (11.5-14.5) 19.2 % (11.5-14.5) Platelet Count 222 x10^3/uL (140-400) 193 x10^3/uL (140-400) Neutrophils (%) (Auto) 75 % (31-73) 66 % (31-73) Lymphocytes (%) (Auto) 15 % (24-48) 21 % (24-48) Monocytes (%) (Auto) 6 % (0-9) 9 % (0-9) Eosinophils (%) (Auto) 3 % (0-3) 3 % (0-3) Basophils (%) (Auto) 2 % (0-3) 1 % (0-3) Neutrophils # (Auto) 4.6 x10^3/uL (1.8-7.7) 2.7 x10^3/uL (1.8-7.7) Lymphocytes # (Auto) 0.9 x10^3/uL (1.0-4.8) 0.9 x10^3/uL (1.0-4.8) Monocytes # (Auto) 0.4 x10^3/uL (0.0-1.1) 0.4 x10^3/uL (0.0-1.1) Eosinophils # (Auto) 0.2 x10^3/uL (0.0-0.7) 0.1 x10^3/uL (0.0-0.7) Basophils # (Auto) 0.1 x10^3/uL (0.0-0.2) 0.0 x10^3/uL (0.0-0.2) Sodium Level 139 mmol/L (136-145) 140 mmol/L (136-145) Potassium Level 7.4 mmol/L (3.5-5.1) 3.9 mmol/L (3.5-5.1) 4.4 mmol/L (3.5-5.1) Chloride Level 96 mmol/L (98-107) 99 mmol/L (98-107) Carbon Dioxide Level 18 mmol/L (21-32) 29 mmol/L (21-32) Anion Gap 25 (6-14) 12 (6-14) Blood Urea Nitrogen 113 mg/dL (7-20) 48 mg/dL (7-20) Creatinine 16.4 mg/dL (0.6-1.0) 8.5 mg/dL (0.6-1.0) Estimated GFR (Cockcroft-Gault) 2.4 5.1 BUN/Creatinine Ratio 7 (6-20) Glucose Level 95 mg/dL (70-99) 117 mg/dL (70-99) Calcium Level 6.7 mg/dL (8.5-10.1) 8.0 mg/dL (8.5-10.1) Magnesium Level 2.1 mg/dL (1.8-2.4) Total Bilirubin 0.4 mg/dL (0.2-1.0) Aspartate Amino Transf (AST/SGOT) 12 U/L (15-37) Alanine Aminotransferase (ALT/SGPT) 10 U/L (14-59) Alkaline Phosphatase 65 U/L (46-116) Creatine Kinase 175 U/L (26-192) Creatine Kinase MB (Mass) 4.2 ng/mL (0.0-3.6) Creatine Kinase MB Relative Index 2.4 % (0-4) Troponin I Quantitative < 0.017 ng/mL (0.000-0.055) RS-Yss-H-Type Natriuretic Peptide 8143 pg/mL (0-124) Total Protein 6.8 g/dL (6.4-8.2) Albumin 3.6 g/dL (3.4-5.0) Albumin/Globulin Ratio 1.1 (1.0-1.7) Thyroid Stimulating Hormone (TSH) 4.774 uIU/mL (0.358-3.74) Hepatitis B Surface Antigen Nonreactive (Nonreactive) Hepatitis B Surface Antibody Reactive Laboratory Tests Test 12/12/18 16:50 12/12/18 22:00 12/13/18 04:00 White Blood Count 6.2 x10^3/uL (4.0-11.0) 4.1 x10^3/uL (4.0-11.0) Red Blood Count 2.82 x10^6/uL (3.50-5.40) 2.96 x10^6/uL (3.50-5.40) Hemoglobin 9.2 g/dL (12.0-15.5) 9.6 g/dL (12.0-15.5) Hematocrit 28.0 % (36.0-47.0) 29.0 % (36.0-47.0) Mean Corpuscular Volume 99 fL (79-100) 98 fL (79-100) Mean Corpuscular Hemoglobin 33 pg (25-35) 33 pg (25-35) Mean Corpuscular Hemoglobin Concent 33 g/dL (31-37) 33 g/dL (31-37) Red Cell Distribution Width 19.8 % (11.5-14.5) 19.2 % (11.5-14.5) Platelet Count 222 x10^3/uL (140-400) 193 x10^3/uL (140-400) Neutrophils (%) (Auto) 75 % (31-73) 66 % (31-73) Lymphocytes (%) (Auto) 15 % (24-48) 21 % (24-48) Monocytes (%) (Auto) 6 % (0-9) 9 % (0-9) Eosinophils (%) (Auto) 3 % (0-3) 3 % (0-3) Basophils (%) (Auto) 2 % (0-3) 1 % (0-3) Neutrophils # (Auto) 4.6 x10^3/uL (1.8-7.7) 2.7 x10^3/uL (1.8-7.7) Lymphocytes # (Auto) 0.9 x10^3/uL (1.0-4.8) 0.9 x10^3/uL (1.0-4.8) Monocytes # (Auto) 0.4 x10^3/uL (0.0-1.1) 0.4 x10^3/uL (0.0-1.1) Eosinophils # (Auto) 0.2 x10^3/uL (0.0-0.7) 0.1 x10^3/uL (0.0-0.7) Basophils # (Auto) 0.1 x10^3/uL (0.0-0.2) 0.0 x10^3/uL (0.0-0.2) Sodium Level 139 mmol/L (136-145) 140 mmol/L (136-145) Potassium Level 7.4 mmol/L (3.5-5.1) 3.9 mmol/L (3.5-5.1) 4.4 mmol/L (3.5-5.1) Chloride Level 96 mmol/L (98-107) 99 mmol/L (98-107) Carbon Dioxide Level 18 mmol/L (21-32) 29 mmol/L (21-32) Anion Gap 25 (6-14) 12 (6-14) Blood Urea Nitrogen 113 mg/dL (7-20) 48 mg/dL (7-20) Creatinine 16.4 mg/dL (0.6-1.0) 8.5 mg/dL (0.6-1.0) Estimated GFR (Cockcroft-Gault) 2.4 5.1 BUN/Creatinine Ratio 7 (6-20) Glucose Level 95 mg/dL (70-99) 117 mg/dL (70-99) Calcium Level 6.7 mg/dL (8.5-10.1) 8.0 mg/dL (8.5-10.1) Magnesium Level 2.1 mg/dL (1.8-2.4) Total Bilirubin 0.4 mg/dL (0.2-1.0) Aspartate Amino Transf (AST/SGOT) 12 U/L (15-37) Alanine Aminotransferase (ALT/SGPT) 10 U/L (14-59) Alkaline Phosphatase 65 U/L (46-116) Creatine Kinase 175 U/L (26-192) Creatine Kinase MB (Mass) 4.2 ng/mL (0.0-3.6) Creatine Kinase MB Relative Index 2.4 % (0-4) Troponin I Quantitative < 0.017 ng/mL (0.000-0.055) TR-Wcf-W-Type Natriuretic Peptide 8143 pg/mL (0-124) Total Protein 6.8 g/dL (6.4-8.2) Albumin 3.6 g/dL (3.4-5.0) Albumin/Globulin Ratio 1.1 (1.0-1.7) Thyroid Stimulating Hormone (TSH) 4.774 uIU/mL (0.358-3.74) Hepatitis B Surface Antigen Nonreactive (Nonreactive) Hepatitis B Surface Antibody Reactive Assessment/Plan Assessment/Plan IMP ESRD-TTS HYPOXIA CHF-DIASTOLIC VOLUME OVERLOAD HYPERKALEMIA NON COMPLIANCE ANEMIA OF ESRD HX OF FAILED RENAL TX 16 YEARS AGO ? HX OF DRUG USE O2 DEPENDENT COPD PLAN EMERGENT HD DONE LAST NIGHT SUPPLEMENTAL 02 ENC COMPLIANCE ARANESP CONT HOME MEDS MITCH RIVERA MD Dec 13, 2018 12:38
--- NOTE | 2018-12-13 15:35 | NUR ---
This RN received report from DAKOTA Ybarra in the ICU at approx 1435. Pt arrived on unit at approx 1515 via wheelchair. Pt oriented to room, call light, and her belongings. This RN provided the pt with ice chips. Will continue to monitor.
[2018-12-13] MEDS ORDERED: QUEtiapine 300 MG TAB.ER.24H. PO SCH (21:00)
[2018-12-13] MEDS ORDERED: rOPINIRole 0.25 MG TABLET. PO SCH (21:00)
[2018-12-13] MEDS ORDERED: DARBEPOETIN ALFA 60 MCG/0.3 ML DISP.SYRIN. SQ SCH (21:00)
[2018-12-14 03:12] VITALS: BP 147/83
--- NOTE | 2018-12-14 04:47 | HP ---
ADMIT DATE: 12/12/2018 CHIEF COMPLAINT: Shortness of breath. HISTORY OF PRESENT ILLNESS: The patient is a pleasant 43-year-old female, who is supposed to be on dialysis, but she has not gone to dialysis for over a week. She presented with volume overload and shortness of breath. Indeed, she also has hyperkalemia of 7.4. She has been admitted for emergent dialysis. PAST MEDICAL HISTORY: Noncompliance, end-stage renal disease, bipolar, anxiety, psychotic tendencies, "paralyzed stomach," panic attacks, renal transplant, left arm fistula, fundoplication. ALLERGIES: SULFA, BEE VENOM, METOCLOPRAMIDE. FAMILY HISTORY: Coronary artery disease. SOCIAL HISTORY: I think she still smokes. No drinking or drugs. MEDICATIONS: Reviewed, please refer to the MRAD. REVIEW OF SYSTEMS: Unable to obtain. The patient is too confused. PHYSICAL EXAMINATION: VITALS: Within normal limits and are stable. GENERAL: No apparent distress. Alert and oriented. HEENT: Head is normocephalic, atraumatic, pupils were equally round and reactive to light and accommodation. NECK: Supple, no JVD, no thyromegaly was noted. LUNGS: Clear to auscultation in all lung [place] without rhonchi or wheezing. HEART: RRR, S1, S2 present. Peripheral pulses intact, no obvious murmurs were noted. ABDOMEN: Soft, nontender. Positive bowel sounds no organomegaly, normal bowel sounds. EXTREMITIES: Without any cyanosis, clubbing, or edema. Pedal pulses intact, Homans sign is negative. NEUROLOGIC: She seems to be confused. She is talking, but really all she wants to talk about is can she go get a cigarette. She did try to climb out of bed and the nurses here are trying to help her. PSYCHIATRIC: Normal affect, normal mood. Stable. SKIN: No ulcerations or rashes, good skin turgor, no jaundice. VASCULAR: Good capillary refill, neurovascular bundle appears to be intact. LABORATORY DATA: Hemoglobin is 9.2, BUN is 48, creatinine 8.5, potassium 7.4. ASSESSMENT AND PLAN: Severe hyperkalemia and volume overload. The patient has been admitted. We are doing emergent dialysis. We have consulted Nephrology. We will try to resume her home meds when appropriate. ICU monitoring, frequent labs, PT, OT, DVT prophylaxis. Full code. PROGNOSIS: Guarded. MATILDE NIELSEN DO DR: YOMI/galileo JOB#: [id number] / [id number]
[2018-12-14 07:00] VITALS: BP 143/82
[2018-12-14 07:46] LABS: HEMATOCRIT 28.3 % (36.0-47.0); RED BLOOD COUNT 2.83 x10^6/uL (3.50-5.40); RED CELL DISTRIBUTION WIDTH 19.1 % (11.5-14.5); WHITE BLOOD COUNT 4.1 x10^3/uL (4.0-11.0)
[2018-12-14 08:20] LABS: CALCIUM 7.2 mg/dL (8.5-10.1); CREATININE 10.6 mg/dL (0.6-1.0); GFR 3.9; POTASSIUM 4.9 mmol/L (3.5-5.1)
[2018-12-14] MEDS ORDERED: ALBU2.5V8 NEB (08:20)
[2018-12-14] MEDS ORDERED: ALPR0.5T6 PO (08:20)
[2018-12-14] MEDS ORDERED: Nicotine 21MG TD (08:20)
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
[2018-12-14 10:53] VITALS: BP 149/93
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
--- NOTE | 2018-12-14 13:44 | PDOC ---
SUBJECTIVE ROS Cough +, states ready to leave OBJECTIVE Vital Signs Vital Signs Date Time Temp Pulse Resp B/P (MAP) Pulse Ox O2 Delivery O2 Flow Rate FiO2 12/14/18 10:53 97.8 88 18 149/93 (111) 93 Room Air 97.8 12/13/18 20:00 3.0 I & 0 Intake and Output 12/14/18 07:00 Intake Total 700 ml Output Total 0 ml Balance 700 ml Intake Oral 700 ml Output Urine Total 0 ml # Voids 1 PHYSICAL EXAM Physical Exam General: No acute distress HEENT: OM moist Lungs: Clear to auscultation Heart: Regular rate, Normal S1, Normal S2, No murmurs Abdomen: NT Extremities: No edema Skin: No rash Neuro: Grossly normal DIAGNOSIS/ASSESSMENT Assessment & Plan ESRD-TTS Emergent HD last week Currently no indication Continue HD as OP per her schedule Hypoxia -stable CHF-Diastolic Hyperkalemia @ presentation Emergent hemodialysis was done Non Compliance Anemia 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 HX of drug use Dcing home today COMMENT/RELEVANT DATA Meds Current Medications Medications (Trade) Dose Ordered Sig/Niko Start Time Stop Time Status Last Admin Dose Admin Albumin Human 200 ml @ 200 mls/hr 1X PRN PRN 12/12/18 19:00 12/13/18 02:00 DC Albuterol Sulfate (Ventolin Neb Soln) 2.5 mg PRN Q4HRS PRN 12/12/18 18:00 12/14/18 13:27 DC 12/12/18 18:15 2.5 MG Alprazolam (Xanax) 0.5 mg PRN Q8HRS PRN 12/12/18 18:00 12/14/18 13:27 DC 12/13/18 16:21 0.5 MG Calcium Carbonate/ Glycine (Tums) 500 mg PRN AFTMEALHC PRN 12/12/18 18:00 12/14/18 13:27 DC Calcium Gluconate (Calcium Gluconate) 1,000 mg 1X ONCE 12/12/18 18:00 12/12/18 18:01 DC 12/12/18 18:18 1,000 MG Clonazepam (KlonoPIN) 1 mg PRN TID PRN 12/13/18 08:30 12/14/18 13:27 DC 12/13/18 17:47 1 MG Clonidine HCl (Catapres) 0.1 mg PRN Q1HR PRN 12/12/18 18:00 12/14/18 13:27 DC 12/13/18 07:40 0.1 MG Darbepoetin Uriel (ARANESP for DIALYSIS PTS) 60 mcg WEEKLYHS 12/13/18 21:00 12/14/18 13:27 DC 12/13/18 22:11 60 MCG Dextrose (Dextrose 50%-Water Syringe) 25 gm 1X ONCE 12/12/18 18:00 12/12/18 18:01 DC 12/12/18 18:18 25 GM Diphenhydramine HCl (Benadryl) 25 mg PRN QHS PRN 12/12/18 18:00 12/14/18 13:27 DC 12/12/18 18:25 25 MG Info (PHARMACY MONITORING -- do not chart) 1 each PRN DAILY PRN 12/12/18 19:15 12/14/18 13:27 DC Insulin Human Regular (HumuLIN R VIAL) 10 unit 1X ONCE 12/12/18 18:15 12/12/18 18:16 DC 12/12/18 18:18 10 UNIT Morphine Sulfate (Morphine Sulfate) 1 mg PRN Q2HR PRN 12/12/18 18:00 12/14/18 13:27 DC Nicotine (Nicoderm Cq 21mg) 1 patch PRN DAILY PRN 12/13/18 11:30 12/14/18 13:27 DC 12/13/18 11:27 1 PATCH Ondansetron HCl (Zofran) 4 mg PRN Q8HRS PRN 12/12/18 18:45 12/13/18 18:44 UNV Oxycodone HCl (Roxicodone) 5 mg PRN Q6HRS PRN 12/12/18 18:00 12/14/18 13:27 DC Quetiapine Fumarate (SEROquel XR) 300 mg QHS 12/13/18 21:00 12/14/18 13:27 DC 12/13/18 22:11 300 MG Ropinirole HCl (Requip) 0.25 mg HS 12/13/18 21:00 12/14/18 13:27 DC 12/13/18 22:11 0.25 MG Sodium Bicarbonate (Sodium Bicarb Adult 8.4% Syr) 50 meq 1X ONCE 12/12/18 18:00 12/12/18 18:01 DC 12/12/18 18:25 50 MEQ Sodium Chloride 1,000 ml @ 400 mls/hr Q2H30M PRN 12/12/18 19:00 12/13/18 02:00 DC Trazodone HCl (Desyrel) 200 mg PRN QHS PRN 12/13/18 08:30 12/14/18 13:27 DC Lab Laboratory Tests Test 12/14/18 06:15 White Blood Count 4.1 x10^3/uL (4.0-11.0) Red Blood Count 2.83 x10^6/uL (3.50-5.40) Hemoglobin 9.0 g/dL (12.0-15.5) Hematocrit 28.3 % (36.0-47.0) Mean Corpuscular Volume 100 fL (79-100) Mean Corpuscular Hemoglobin 32 pg (25-35) Mean Corpuscular Hemoglobin Concent 32 g/dL (31-37) Red Cell Distribution Width 19.1 % (11.5-14.5) Platelet Count 149 x10^3/uL (140-400) Sodium Level 139 mmol/L (136-145) Potassium Level 4.9 mmol/L (3.5-5.1) Chloride Level 100 mmol/L (98-107) Carbon Dioxide Level 22 mmol/L (21-32) Anion Gap 17 (6-14) Blood Urea Nitrogen 57 mg/dL (7-20) Creatinine 10.6 mg/dL (0.6-1.0) Estimated GFR (Cockcroft-Gault) 3.9 Glucose Level 83 mg/dL (70-99) Calcium Level 7.2 mg/dL (8.5-10.1) Results All relevant outside records, renal labs, imaging studies, telemetry/EKG's were reviewed. REYNOLD ZHU MD Dec 14, 2018 13:44
== END 2018-12-14 13:26 | disposition home or self-care (01) | DRG 640 ==
LOC: ER 16:11 → 1 WEST ICU 18:09 → 5 SOUTH 12-13 15:17
PROVIDERS: ADMIT Internal Medicine; ATTEND Internal Medicine
PROC: 5A1D70Z Performance of Urinary Filtration, Intermittent, Less than 6 Hours Per Day (ICD-10-PCS; principal; 2018-12-12)
DX: E87.5 Hyperkalemia (principal); N18.6 End stage renal disease; Z94.0 Kidney transplant status; I13.2 Hypertensive heart and chronic kidney disease with heart failure and with stage 5 chronic kidney disease, or end stage renal disease; I50.32 Chronic diastolic (congestive) heart failure; E87.70 Fluid overload, unspecified; J44.9 Chronic obstructive pulmonary disease, unspecified; F31.9 Bipolar disorder, unspecified; F41.9 Anxiety disorder, unspecified; F20.9 Schizophrenia, unspecified; R09.02 Hypoxemia; E21.3 Hyperparathyroidism, unspecified; D63.1 Anemia in chronic kidney disease; G25.81 Restless legs syndrome; F17.200 Nicotine dependence, unspecified, uncomplicated; Z91.19 Patient's noncompliance with other medical treatment and regimen; Z99.2 Dependence on renal dialysis; Z88.2 Allergy status to sulfonamides; Z88.8 Allergy status to other drugs, medicaments and biological substances; Z91.030 Bee allergy status; Z82.49 Family history of ischemic heart disease and other diseases of the circulatory system; Z99.81 Dependence on supplemental oxygen
CPT/HCPCS: 36415; 71045; 80048; 80053; 82553; 83735; 83880; 84132; 84443; 84484; 85025; 85027; 86704; 86706; 87340; 93005; 94640; 96374; 96375; J0610; J0882; J1815; J2405; J7042; J7613; Q0163; 99285-25; G0378

== ENCOUNTER 2019-03-26 11:54 | Emergency (ER) | payer MEDICARE ==
[~2019-03-26] VITALS: Ht 154.9 cm; Wt 49.9 kg
[~2019-03-26 11:54] MED LIST changes: +ALBU2.5V8 NEB; +ALPR0.5T6 PO; +CLONAZEPAM1 MG PO; +Nicotine 21MG TD; +QUET300T7 PO; +ROPI0.25 PO; +TRAZ-86 PO
[2019-03-26 13:13] VITALS: BP 100/59
[2019-03-26] MEDS ORDERED: HYDR-3164 PO (15:12)
[2019-03-26] MEDS ORDERED: FLUC150T PO (15:12)
[2019-03-26] MEDS ORDERED: AMOX875T PO (15:12)
[2019-03-26] MEDS ORDERED: OFLO5DRO7 AS (15:12)
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
== END 2019-03-26 15:18 | disposition home or self-care (01) ==
LOC: ER 11:54
DX: N18.6 End stage renal disease (principal); H60.392 Other infective otitis externa, left ear; K08.89 Other specified disorders of teeth and supporting structures; J44.9 Chronic obstructive pulmonary disease, unspecified; F31.9 Bipolar disorder, unspecified; F20.9 Schizophrenia, unspecified; Z94.0 Kidney transplant status; Z99.2 Dependence on renal dialysis; Z88.2 Allergy status to sulfonamides; Z88.1 Allergy status to other antibiotic agents; Z91.030 Bee allergy status
CPT/HCPCS: 99283

== ENCOUNTER 2019-07-17 10:45 | Emergency (ER) | payer MEDICARE ==
[~2019-07-17] VITALS: Ht 167.6 cm; Wt 58.0 kg
[~2019-07-17 10:45] MED LIST changes: +HYDR-3164 PO; +OFLO5DRO7 AS; -QUET300T7 PO; +QUET300T89 PO; +TRAZ-123 PO; -TRAZ-86 PO
[2019-07-17 10:55] VITALS: BP 144/76
[2019-07-17] MEDS ORDERED: fentaNYL PF VIAL 100 MCG/2 ML VIAL IM ONE (11:15)
[2019-07-17] MEDS ORDERED: LIDOCAINE 1% Multi-Dose 20 ML VIAL. INJ ONE (11:15)
--- NOTE | 2019-07-17 11:43 | RAD ---
PROCEDURE: HAND RIGHT 3V STUDY DATE: 07/17/2019 CLINICAL INDICATION / HISTORY: Right hand pain and swelling after patient fell. TECHNIQUE: PA, lateral and oblique views of the right hand. COMPARISON: No relevant comparisons currently available FINDINGS: Complete dislocation and slight proximal override of the middle phalanx of the third digit relative to the proximal phalanx is identified. In addition, there is evidence of an acute fracture through the distal phalanx of the third digit. healed fracture of the proximal fourth phalanx is present status post dorsal plate and screw construct fixation. IMPRESSION: 1. Acute transverse fracture of the distal phalanx third digit. 2. Acute dislocation of the third digit at the PIP joint with dorsal displacement and slight proximal override. Electronically signed by: Nicanor Paulino MD (07/17/2019 11:40 AM) [id number]
--- NOTE | 2019-07-17 12:01 | PHYS DOC ---
Past Medical History Past Medical History: Anxiety, Bipolar, COPD, Renal Failure, Schizophrenia, Other Additional Past Medical Histor: PANIC ATTACKS,PSYCHOTIC TENDENCIES,PARALYZED STOMACH Past Surgical History: No Surgical History, Other Additional Past Surgical Histo: KIDNEY TRANSPLANT,FISTULA L ARM,FUNDIPLICATION Smoking Status: Current Every Day Smoker Additional Information: 5-6 cigarettes daily Alcohol Use: None Drug Use: Marijuana General Adult EDM: Chief Complaint: FINGER INJURY HPI: HPI: Patient is a right-handed 43 year old female with history of anxiety and depression, bipolar disorder, chronic renal failure on dialysis, COPD, schizophrenia, panic attack, psychotic tendencies who presents with complaining of right hand injury. Patient states she had an accidental fall from standing position without head injury or loss of consciousness and injured her right hand and complaining of severe pain in her right hand. Patient denies other injuries and using drugs and alcohol. Patient states she missed her dialysis the last time and plans to go for scheduled dialysis today at 1230. Review of Systems: Review of Systems: Constitutional: Denies fever or chills. [] Eyes: Denies change in visual acuity. [] HENT: Denies nasal congestion or sore throat. [] Respiratory: Denies cough or shortness of breath. [] Cardiovascular: Denies chest pain or edema. [] GI: Denies abdominal pain, nausea, vomiting, bloody stools or diarrhea. [] : Denies dysuria. [] Musculoskeletal: Denies back pain, report joint pain. [] Integument: Denies rash. [] Neurologic: Denies headache, focal weakness or sensory changes. [] Endocrine: Denies polyuria or polydipsia. [] Lymphatic: Denies swollen glands. [] Psychiatric: Denies depression or anxiety. [] Heart Score: Risk Factors: Risk Factors: DM, Current or recent (<one month) smoker, HTN, HLP, family history of CAD, obesity. Risk Scores: Score 0 - 3: 2.5% MACE over next 6 weeks - Discharge Home Score 4 - 6: 20.3% MACE over next 6 weeks - Admit for Clinical Observation Score 7 - 10: 72.7% MACE over next 6 weeks - Early Invasive Strategies Current Medications: Current Medications Medications (Trade) Dose Ordered Sig/Niko Start Time Stop Time Status Last Admin Dose Admin Fentanyl Citrate (Fentanyl 2ml Vial) 50 mcg 1X ONCE 07/17/19 11:15 07/17/19 11:16 DC 07/17/19 11:35 50 MCG Lidocaine HCl (Lidocaine 1% 20ml Vial) 20 ml 1X ONCE 07/17/19 11:15 07/17/19 11:29 DC 07/17/19 11:33 20 ML Allergies: Allergies: Allergies Coded Allergies Type Severity Reaction Last Updated Verified bee venom protein (honey bee) Allergy Intermediate 12/12/18 Yes metoclopramide Allergy Intermediate 12/12/18 Yes Sulfa (Sulfonamide Antibiotics) Adverse Reaction Intermediate STOMACH HURTS 07/06/16 Yes Physical Exam: PE: Constitutional: Well developed, well nourished, mild distress, non-toxic appearance. [] HENT: Normocephalic, atraumatic. Eyes: PERRLA, EOMI, conjunctiva normal, no discharge. [] Neck: Normal range of motion, no tenderness, supple, no stridor. [] Cardiovascular:Heart rate regular rhythm, no murmur [] Lungs & Thorax: Bilateral breath sounds clear to auscultation [] Extremities: Right hand with contusion of dorsal side of palm between first and second metacarpal area, right middle finger with deformity and dislocation of PIP joint, tenderness of distal phalanx of middle finger, no neurovascular deficit Neurologic: Alert and oriented X 3, no focal deficits noted. [] Psychologic: Affect very anxious, mood normal. [] Current Patient Data: Vital Signs: Vital Signs Date Time Temp Pulse Resp B/P (MAP) Pulse Ox O2 Delivery O2 Flow Rate FiO2 07/17/19 11:35 20 96 Room Air 07/17/19 10:55 97.8 70 144/76 (98) 97.8 EKG: EKG: [] Radiology/Procedures: Radiology/Procedures: [][facility] [address] [place], [place] [id number] IMAGING REPORT Signed PATIENT: ELIZABETH ARAGON ACCOUNT: [id number] : 1975 LOCATION: ER AGE: 43 SEX: F EXAM STATUS: PRE ER ORD. PHYSICIAN: JONNY MARINA MD REASON: injury, PT FELL, RT HAND PAIN AND SWELLING PROCEDURE: HAND RIGHT 3V PROCEDURE: HAND RIGHT 3V STUDY DATE: 07/17/2019 CLINICAL INDICATION / HISTORY: Right hand pain and swelling after patient fell. TECHNIQUE: PA, lateral and oblique views of the right hand. COMPARISON: No relevant comparisons currently available FINDINGS: Complete dislocation and slight proximal override of the middle phalanx of the third digit relative to the proximal phalanx is identified. In addition, there is evidence of an acute fracture through the distal phalanx of the third digit. healed fracture of the proximal fourth phalanx is present status post dorsal plate and screw construct fixation. IMPRESSION: 1. Acute transverse fracture of the distal phalanx third digit. 2. Acute dislocation of the third digit at the PIP joint with dorsal displacement and slight proximal override. Electronically signed by: Marlee Paulino MD (07/17/2019 11:40 AM) [id number] DICTATED and SIGNED BY: MARLEE PAULINO MD DATE: 07/17/19 1140 [facility] [address] [address] IMAGING REPORT Signed PATIENT: ELIZABETH ARAGON ACCOUNT: [id number] : 1975 LOCATION: ER AGE: 43 SEX: F EXAM STATUS: PRE ER ORD. PHYSICIAN: JONNY MARINA MD REASON: Post reduction PROCEDURE: FINGER(S) RIGHT PROCEDURE: FINGER(S) RIGHT STUDY DATE: 07/17/2019 CLINICAL INDICATION / HISTORY: Post reduction. TECHNIQUE: Right middle finger - 3 Views: PA, oblique, and lateral views were obtained. COMPARISON: Right hand x-rays same day FINDINGS: Nondisplaced fracture of the distal phalanx of the right third digit is redemonstrated associated with mild diffuse soft tissue swelling. The displaced dislocation of the proximal interphalangeal joint of the right third digit has since been successfully reduced, now in anatomic alignment. Dorsal plate and screw fixation of the proximal phalanx right fourth digit is incidentally noted, unchanged. IMPRESSION: Right third finger. Reduction of the PIP joint dislocation and no change in alignment of the nondisplaced fracture through the distal third phalanx. Electronically signed by: Marlee Paulino MD (07/17/2019 12:20 PM) [id number] DICTATED and SIGNED BY: MARLEE PAULINO MD DATE: 07/17/19 1220 Course & Med Decision Making: Course & Med Decision Making Pertinent Imaging studies reviewed. (See chart for details) Evaluation of patient inertial 43-year-old female patient with history of extensive psychiatric problem and chronic renal failure on dialysis with a fall and injury to right hand. Patient had dislocation of PIP of right middle finger that was reduced with digital block. Aluminium foam finger splint was applied and patient was advised to follow-up with her dialysis today. I've spoken with the patient and/or caregivers. I've explained the patient's condition, diagnosis and treatment plan based on information available to me at this time. I've answered the patient's and/or caregivers questions and addressed any concerns. The patient and/or caregivers have a good understanding the patient's diagnosis, condition and treatment plan as can be expected at this point. Vital signs have been stabilized. The patient's condition is stable for discharge from the emergency department. The patient will pursue further outpatient evaluation with her primary care provider or other designated consulting physician as outlined in the discharge instructions. Patient and/or caregivers are agreeable to this plan of care and follow-up instructions have been explained in detail. The patient and/or caregivers have received these instructions in written format and expressed understanding of these discharge instructions. The patient and her caregivers are aware that if any significant change in condition or worsening of symptoms should prompt him to immediately return to this of the closest emergency department. If an emergent department is not readily available I would encourage him to call 911. Levi Disclaimer: Levi Disclaimer: This electronic medical record was generated, in whole or in part, using a voice recognition dictation system. Departure Departure Impression: Primary Impression: Dislocation of right middle finger Qualified Codes: S63.252A - Unspecified dislocation of right middle finger, initial encounter Additional Impressions: Closed fracture of distal phalanx of right middle finger Qualified Codes: S62.662A - Nondisplaced fracture of distal phalanx of right middle finger, initial encounter for closed fracture ESRD (end stage renal disease) on dialysis Anxiety Non-compliance Contusion of right hand Qualified Codes: S60.221A - Contusion of right hand, initial encounter Fall at home Qualified Codes: W19.XXXD - Unspecified fall, subsequent encounter; Y92.009 - Unspecified place in unspecified non-institutional (private) residence as the place of occurrence of the external cause Disposition: 01 HOME, SELF-CARE (At 1230) Condition: IMPROVED Referrals: TRISTON GUERRERO (PCP) IAM MATHIS MD Patient Instructions: Anxiety and Panic Attacks, Dialysis, Fall Prevention and Home Safety, Finger Dislocation, [id number], Finger Fracture (Phalangeal)- SportsMed, Hand Contusion, Kidney Failure, [id number] Additional Instructions: Follow-up with your dialysis as scheduled today Follow-up with your primary care physician in 3-5 days Return to ER if not getting better Follow-up with orthopedic physician in 3 to 5 days Thank you for visiting [facility]. We appreciate you trusting us with your care. If any additional problems come up don't hesitate to return to visit us. Please follow up with your primary care provider so they can plan additional care if needed and know about the problem that you had. If symptoms worsen come back to the Emergency Department. Any concerning symptoms that start such as chest pain, shortness of air, weakness or numbness on one side of the body, running high fevers or any other concerning symptoms return to the ER. Scripts Hydrocodone/Apap 5-325 (NORCO 5-325 TABLET) 1 Each Tablet 1 TAB PO PRN Q6HRS PRN for PAIN, #10 TAB 0 Refills Prov: JONNY MARINA MD 07/17/19 Joint Reduction Procedure Joint Indication: Right middle finger PIP dislocation Consent: Consent was obtained. Procedure: The pre-reduction exam showed distal perfusion and neurologic function to be normal. Digital block with 2% lidocaine was given. The patient was placed in the appropriate position. Reduction of right middle finger dislocation was performed with manipulation and extraction. Post reduction films were obtained and revealed satisfactory reduction. A post-reduction exam reveal ed distal perfusion and neurologic function to be normal. The affected area was immobilized with finger immobilization The patient tolerated the procedure well. Complications: none. JONNY MARINA MD Jul 17, 2019 12:00
--- NOTE | 2019-07-17 12:23 | RAD ---
PROCEDURE: FINGER(S) RIGHT STUDY DATE: 07/17/2019 CLINICAL INDICATION / HISTORY: Post reduction. TECHNIQUE: Right middle finger - 3 Views: PA, oblique, and lateral views were obtained. COMPARISON: Right hand x-rays same day FINDINGS: Nondisplaced fracture of the distal phalanx of the right third digit is redemonstrated associated with mild diffuse soft tissue swelling. The displaced dislocation of the proximal interphalangeal joint of the right third digit has since been successfully reduced, now in anatomic alignment. Dorsal plate and screw fixation of the proximal phalanx right fourth digit is incidentally noted, unchanged. IMPRESSION: Right third finger. Reduction of the PIP joint dislocation and no change in alignment of the nondisplaced fracture through the distal third phalanx. Electronically signed by: Nicanor Paulino MD (07/17/2019 12:20 PM) [id number]
[2019-07-17] MEDS ORDERED: HYDR-3164 PO (12:33)
== END 2019-07-17 13:00 | disposition home or self-care (01) ==
LOC: ER 10:45
DX: S63.282A Dislocation of proximal interphalangeal joint of right middle finger, initial encounter (principal); S62.662A Nondisplaced fracture of distal phalanx of right middle finger, initial encounter for closed fracture; N18.6 End stage renal disease; J44.9 Chronic obstructive pulmonary disease, unspecified; F20.9 Schizophrenia, unspecified; F31.9 Bipolar disorder, unspecified; F17.210 Nicotine dependence, cigarettes, uncomplicated; Z99.2 Dependence on renal dialysis; Z94.0 Kidney transplant status; Z88.2 Allergy status to sulfonamides; Z91.030 Bee allergy status; Z88.8 Allergy status to other drugs, medicaments and biological substances; W18.39XA Other fall on same level, initial encounter; Y93.89 Activity, other specified; Y92.89 Other specified places as the place of occurrence of the external cause; Y99.8 Other external cause status
CPT/HCPCS: 26725; 73130; 73140; 96372; 99284; J3010; J3490

== ENCOUNTER 2019-08-23 22:35 | Inpatient (IN) | payer MEDICARE, OTHER ==
[~2019-08-23] VITALS: Ht 167.6 cm; Wt 61.8 kg
--- NOTE | 2019-08-23 23:31 | PHYS DOC ---
Past Medical History Past Medical History: Anxiety, Bipolar, COPD, Renal Failure, Schizophrenia, Other Additional Past Medical Histor: PANIC ATTACKS,PSYCHOTIC TENDENCIES,PARALYZED STOMACH Past Surgical History: No Surgical History, Other Additional Past Surgical Histo: KIDNEY TRANSPLANT,FISTULA L ARM,FUNDIPLICATION Smoking Status: Current Every Day Smoker Alcohol Use: None Drug Use: Marijuana General Adult EDM: Chief Complaint: SHORTNESS OF BREATH HPI: HPI: Patient is a 43 year old female who presents with numerous complaints, the worst of which is that her butt itches really bad. Patient states he has been scratching it so much that it feels like it is raw. She is not sure why it feels so itchy. She also complains of sores in her mouth but states that she has been prescribed some numbing medicine for that. She denies any fever. She denies any chest pain or shortness of breath. Patient does admit to a history of methamphetamine abuse but denies any use of it for about the last month. Patient is on dialysis for end-stage renal disease and states that her last dialysis was on Friday. [] Review of Systems: Review of Systems: Constitutional: Denies fever or chills. [] Respiratory: Denies cough or shortness of breath. [] Cardiovascular: Denies chest pain or edema. [] Integument: Positive pruritus. [] Neurologic: Denies headache, focal weakness or sensory changes. [] A full 10 point review of systems has been reviewed and is otherwise negative. Heart Score: Risk Factors: Risk Factors: DM, Current or recent (<one month) smoker, HTN, HLP, family history of CAD, obesity. Risk Scores: Score 0 - 3: 2.5% MACE over next 6 weeks - Discharge Home Score 4 - 6: 20.3% MACE over next 6 weeks - Admit for Clinical Observation Score 7 - 10: 72.7% MACE over next 6 weeks - Early Invasive Strategies Allergies: Allergies: Allergies Coded Allergies Type Severity Reaction Last Updated Verified bee venom protein (honey bee) Allergy Intermediate 12/12/18 Yes metoclopramide Allergy Intermediate 12/12/18 Yes Sulfa (Sulfonamide Antibiotics) Adverse Reaction Intermediate STOMACH HURTS 07/06/16 Yes Physical Exam: PE: Constitutional: Well developed, well nourished, no acute distress, non-toxic appearance. [] HENT: Normocephalic, atraumatic, bilateral external ears normal, oropharynx moist, no oral exudates, nose normal. [] Eyes: PERRLA, EOMI, conjunctiva normal, no discharge. [] Neck: Normal range of motion, no tenderness, supple. [] Cardiovascular: Regular rate and rhythm [] Lungs & Thorax: Bilateral breath sounds clear to auscultation [] Abdomen: Bowel sounds normal, soft, no tenderness. [] Skin: Warm, dry, no erythema. Examination of patient's buttocks, demonstrates some mild excoriations and erythema [] Extremities: No tenderness, no cyanosis, no clubbing, ROM intact, no edema. [] Neurologic: Alert and oriented X 3, no focal deficits noted. [] Psychologic: Patient appears anxious and hyperkinetic on exam. [] Current Patient Data: Vital Signs: Vital Signs Date Time Temp Pulse Resp B/P (MAP) Pulse Ox O2 Delivery O2 Flow Rate FiO2 08/23/19 22:52 97.9 95 16 127/82 (97) 98 Room Air 97.9 EKG: EKG: [] Radiology/Procedures: Radiology/Procedures: [] Course & Med Decision Making: Course & Med Decision Making Pertinent Labs and Imaging studies reviewed. (See chart for details) [] Dragon Disclaimer: Dragon Disclaimer: This electronic medical record was generated, in whole or in part, using a voice recognition dictation system. Departure Departure Impression: Primary Impression: ESRD (end stage renal disease) on dialysis Additional Impression: Hyperkalemia Disposition: ADMITTED INPATIENT Admitting Physician: HIMMarian Condition: IMPROVED Referrals: TRISTON GUERRERO (PCP) LADI DURANT Jr. DO August 23, 2019 23:31
[2019-08-23 23:36] LABS: BASO # 0.1 x10^3/uL (0.0-0.2); BASO % 1 % (0-3); EOS # 0.1 x10^3/uL (0.0-0.7); EOS % 2 % (0-3); HEMATOCRIT 40.6 % (36.0-47.0); HEMOGLOBIN 13.2 g/dL (12.0-15.5); LYMPH # 2.1 x10^3/uL (1.0-4.8); LYMPH % 28 % (24-48); MEAN CORPUSCULAR HEMOGLOBIN 32 pg (25-35); MEAN CORPUSCULAR HGB CONC 33 g/dL (31-37); MEAN CORPUSCULAR VOLUME 97 fL (79-100); MONO # 0.5 x10^3/uL (0.0-1.1); MONO % 6 % (0-9); NEUT # 4.7 x10^3/uL (1.8-7.7); NEUT % 62 % (31-73); PLATELET COUNT 177 x10^3/uL (140-400); RED CELL DISTRIBUTION WIDTH 20.1 % (11.5-14.5); WHITE BLOOD COUNT 7.5 x10^3/uL (4.0-11.0)
[2019-08-23 23:49] LABS: ALBUMIN 3.8 g/dL (3.4-5.0); ALBUMIN/GLOBULIN RATIO 1.2 (1.0-1.7); CALCIUM 8.6 mg/dL (8.5-10.1); CREATININE 14.1 mg/dL (0.6-1.0); GFR 2.8; TOTAL BILIRUBIN 0.3 mg/dL (0.2-1.0); TOTAL PROTEIN 6.9 g/dL (6.4-8.2)
[2019-08-23 23:53] LABS: POTASSIUM 6.3 mmol/L (3.5-5.1)
[2019-08-24] MEDS ORDERED: HYDROCORTISONE 1% TOPICAL OINTMENT 30GM TUBE. TP ONE
[2019-08-24 00:27] LABS: ANISOCYTOSIS MOD; PLT ESTIMATE ADEQUATE (ADEQUATE)
[2019-08-24] MEDS ORDERED: DEXTROSE 50% 25 GM / 50ML DISP.SYRIN. IV ONE (01:00)
[2019-08-24] MEDS ORDERED: SODIUM POLYSTYRENE SULFON/SORB 15 GM/60 ML ORAL.SUSP PO ONE (01:00)
[2019-08-24] MEDS ORDERED: INSULIN REGULAR 100 UNIT/ML 3ML VIAL. IV ONE (01:00)
[2019-08-24] MEDS ORDERED: SODIUM BICARB ADULT 8.4% 50 MEQ/50 ML DISP.SYRIN. IV ONE (01:00)
[2019-08-24] MEDS ORDERED: ONDANSETRON PF 4 MG/2 ML VIAL. IV PRN ×2 (01:15→09:15)
[2019-08-24 03:55] VITALS: BP 137/68
--- NOTE | 2019-08-24 05:05 | EKG ---
[facility] [address] [place] [address] Test Date: 2019-08-24 Test Time: 00:55:02 Pat Name: ELIZABETH ARAGON Department: Room: 2 Gender: F Cereal Maker: : 1975 Requested By: LADI DURANT Order Number: [id number] Reading MD: Dc Smith Measurements Intervals Gentry Rate: 73 P: 52 ND: 0 QRS: 79 QRSD: 188 T: 114 QT: 460 QTc: 511 Interpretive Statements SINUS RHYTHM Electronically Signed On 08-24-2019 15:52:30 CDT by Dc Smith
[2019-08-24] MEDS: METOPROLOL TART IMMED RELEASE 25 MG TABLET. PO SCH ×2 (06:32→20:52)
[2019-08-24 07:00] VITALS: BP 105/81
[2019-08-24] MEDS ORDERED: IV NORMAL SALINE 1000ML BAG 1,000 ML IV PRN ×2 (09:06)
--- NOTE | 2019-08-24 09:07 | PDOC1 ---
History and Physical Date of Admission Date of Admission DATE: 08/24/19 TIME: 08:58 Identification/Chief Complaint Chief Complaint Rectal itching Source Source: Patient History of Present Illness History of Present Illness Ms Bertrand is a 43 yo F w/ PMHx Anxiety, Bipolar, COPD, Schizophrenia, smoker, ESRD s/p failed renal transplant who presents with numerous complaints, gluteal pruritis is her highest priority complaint. Patient states he has been scratching it so much that it feels like it is raw. She is not sure why it feels so itchy. She also complains of sores in her mouth but states that she has been prescribed some numbing medicine for that. She denies any fever. She denies any chest pain or shortness of breath. Patient does admit to a history of methamphetamine abuse but denies any use of it for about the last month. States her last dialysis was on 08/21/2019. EKG with long ME and LBBB, no STEMI or twave abnormalities Labs significant for NA 137, K6.3, BUN 91, CR 14.1, glucose 126, WBC 7.5, Hb 13.2, platelets 177. She was given Kayexalate, insulin and D50 for hyperkalemia and admitted for further care. Past Medical History Cardiovascular: HTN Pulmonary: COPD Heme/Onc: Anemia NOS Musculoskeletal: Muscle atrophy, Weakness Renal/: Chronic renal failure, Other Endocrine: Hyperparathyroidism Past Surgical History Past Surgical History: Other (renal transplant) Family History Family History: Hypertension Social History Smoke: 1 pack per day ALCOHOL: rare Drugs: Other Current Problem List Problem List Problems Medical Problems: (1) ESRD (end stage renal disease) on dialysis Status: Acute (2) Hyperkalemia Status: Acute Current Medications Current Medications Current Medications Hydrocortisone (Cortaid) 1 carlos 1X ONCE TP Last administered on 08/23/19at 23:38; Start 08/24/19 at 00:00; Stop 08/24/19 at 00:01; Status DC Sodium Polystyrene Sulfonate (Kayexalate) 15 gm 1X ONCE PO Last administered on 08/24/19at 01:00; Start 08/24/19 at 01:00; Stop 08/24/19 at 01:01; Status DC Insulin Human Regular (HumuLIN R VIAL) 10 unit 1X ONCE IV Last administered on 08/24/19at 01:07; Start 08/24/19 at 01:00; Stop 08/24/19 at 01:01; Status DC Dextrose (Dextrose 50%-Water Syringe) 25 gm 1X ONCE IV Last administered on 08/24/19at 01:03; Start 08/24/19 at 01:00; Stop 08/24/19 at 01:01; Status DC Sodium Bicarbonate (Sodium Bicarb Adult 8.4% Syr) 50 meq 1X ONCE IV Last administered on 08/24/19at 01:03; Start 08/24/19 at 01:00; Stop 08/24/19 at 01:01; Status DC Ondansetron HCl (Zofran) 4 mg PRN Q8HRS PRN IV NAUSEA/VOMITING 1ST CHOICE; Start 08/24/19 at 01:15; Stop 08/25/19 at 01:14 Lorazepam (Ativan Inj) 2 mg 1X ONCE IVP Last administered on 08/24/19at 01:49; Start 08/24/19 at 02:00; Stop 08/24/19 at 02:01; Status DC Metoprolol Tartrate (Lopressor) 12.5 mg BID PO Last administered on 08/24/19at 06:32; Start 08/24/19 at 05:00 Active Scripts Active [place] 5-325 Tablet (Acetaminophen/Hydrocodone Bitart) 1 Each Tablet 1 Tab PO PRN Q6HRS PRN [place] 5-325 Tablet (Acetaminophen/Hydrocodone Bitart) 1 Each Tablet 1 Tab PO Q6- 8HRS PRN [Nicotine 21MG] 1 PATCH Patch 1 Patch TD PRN DAILY PRN Proair Hfa (Albuterol Sulfate) 8.5 Gm Hfa.aer.ad 2.5 Mg NEB PRN Q4HRS PRN 30 Days Alprazolam 0.5 Mg Tablet 0.5 Mg PO PRN Q8HRS PRN Reported Clonazepam 1 Mg Tablet 1 Mg PO TID PRN PRN Trazodone Hcl 100 Mg Tablet 1 Tab PO PRN QHS PRN Requip (Ropinirole Hcl) 0.25 Mg Tablet 0.25 Mg PO HS Seroquel Xr (Quetiapine Fumarate) 300 Mg Tab.er.24h 1 Tab PO QHS Allergies Allergies: Coded Allergies: bee venom protein (honey bee) (Verified Allergy, Intermediate, 12/12/18) metoclopramide (Verified Allergy, Intermediate, 12/12/18) Sulfa (Sulfonamide Antibiotics) (Verified Adverse Reaction, Intermediate, STOMACH HURTS, 07/06/16) ROS General: YES: Fatigue, Malaise; No: Chills, Night Sweats, Appetite, Other PSYCHOLOGICAL ROS: YES: Anxiety, Behavioral Disorder, Concentration difficultie ; No: Decreased libido, Depression, Disorientation, Hallucinations, Hostility, Irritablity, Memory difficulties, Mood Swings, Obsessive thoughts, Physical abuse, Sexual abuse, Sleep disturbances, Suicidal ideation, Other Eyes: No Blurry vision, No Decreased vision, No Double vision, No Dry eyes, No Excessive tearing, No Eye Pain, No Itchy Eyes, No Loss of vision, No Photophobia, No Scotomata, No Uses contacts, No Uses glasses, No Other HEENT: No: Heacaches, Visual Changes, Hearing change, Nasal congestion, Nasal discharge, Oral lesions, Sinus pain, Sore Throat, Epistaxis, Sneezing, Snoring, Tinnitus, Vertigo, Vocal changes, Other ALLERGY AND IMMUNOLOGY: No: Hives, Insect Bite Sensitivity, Itchy/Watery Eyes, Nasal Congestion, Post Nasal Drip, Seasonal Allergies, Other Hematological and Lymphatic: No: Bleeding Problems, Blood Clots, Blood T ransfusions, Brusing, Night Sweats, Pallor, Swollen Lymph Nodes, Other ENDOCRINE: No: Breast Changes, Galactorrhea, Hair Pattern Changes, Hot Flashes, Malaise/lethargy, Mood Swings, Palpitations, Polydipsia/polyuria, Skin Changes, Temperature Intolerance, Unexpected Weight Changes, Other Breast: No New/Changing Breast Lumps, No Nipple changes, No Nipple discharge, No Other Respiratory: No: Cough, Hemoptysis, Orthopnea, Pleuritic Pain, Shortness of breath, SOB with excertion, Sputum Changes, Stridor, Tachypnea, Wheezing, Other Cardiovascular: No Chest Pain, No Palpitations, No Orthopnea, No Paroxysmal Noc. Dyspnea, No Edema, No Lt Headedness, No Other Gastrointestinal: Yes Other (Rectal itching); No Nausea, No Vomiting, No Abdominal Pain, No Diarrhea, No Constipation, No Melena, No Hematochezia Genitourinary: No Dysuria, No Frequency, No Incontinence, No Hematuria, No Retention, No Discharge, No Urgency, No Pain, No Flank Pain, No Other, No , No , No , No , No , No , No Musculoskeletal: No Gait Disturbance, No Joint Pain, No Joint Stiffness, No Joint Swelling, No Muscle Pain, No Muscular Weakness, No Pain In:, No Swelling In:, No Other Neurological: No Behavorial Changes, No Bowel/Bladder ControlChng, No Confusion, No Dizziness, No Gait Disturbance, No Headaches, No Impaired Coord/balance, No Memory Loss, No Numbness/Tingling, No Seizures, No Speech Problems, No Tremors, No Visual Changes, No Weakness, No Other Skin: No Dry Skin, No Eczema, No Hair Changes, No Lumps, No Mole Changes, No Mottling, No Nail Changes, No Pruritus, No Rash, No Skin Lesion Changes, No Other, No Acne Physical Exam General: Alert, Cooperative, No acute distress HEENT: Atraumatic, PERRLA, EOMI, Mucous membr. moist/pink Lungs: Clear to auscultation, Normal air movement Heart: S1S2, RRR, no thrills, no rubs, no gallops, no murmurs Abdomen: Normal bowel sounds, Soft, No tenderness, No hepatosplenomegaly, No masses Rectal Exam: hemorrhoids Extremities: No clubbing, No cyanosis, No edema, Normal pulses, No tenderness/swelling Skin: No rashes, No breakdown, No significant lesion Neuro: Normal gait, Normal speech, Strength at 5/5 X4 ext, Normal tone, Sensation intact, Cranial nerves 3-12 NL, Reflexes 2+ Vitals Vitals Vital Signs Date Time Temp Pulse Resp B/P (MAP) Pulse Ox O2 Delivery O2 Flow Rate FiO2 08/24/19 07:00 97.7 86 19 105/81 (89) 98 Room Air 97.7 Labs Labs Laboratory Tests Test 08/23/19 23:27 08/24/19 05:24 White Blood Count 7.5 x10^3/uL (4.0-11.0) Red Blood Count 4.20 x10^6/uL (3.50-5.40) Hemoglobin 13.2 g/dL (12.0-15.5) Hematocrit 40.6 % (36.0-47.0) Mean Corpuscular Volume 97 fL (79-100) Mean Corpuscular Hemoglobin 32 pg (25-35) Mean Corpuscular Hemoglobin Concent 33 g/dL (31-37) Red Cell Distribution Width 20.1 % (11.5-14.5) Platelet Count 177 x10^3/uL (140-400) Neutrophils (%) (Auto) 62 % (31-73) Lymphocytes (%) (Auto) 28 % (24-48) Monocytes (%) (Auto) 6 % (0-9) Eosinophils (%) (Auto) 2 % (0-3) Basophils (%) (Auto) 1 % (0-3) Neutrophils # (Auto) 4.7 x10^3/uL (1.8-7.7) Lymphocytes # (Auto) 2.1 x10^3/uL (1.0-4.8) Monocytes # (Auto) 0.5 x10^3/uL (0.0-1.1) Eosinophils # (Auto) 0.1 x10^3/uL (0.0-0.7) Basophils # (Auto) 0.1 x10^3/uL (0.0-0.2) Platelet Estimate Adequate (ADEQUATE) Anisocytosis Mod Sodium Level 137 mmol/L (136-145) Potassium Level 6.3 mmol/L (3.5-5.1) 6.3 mmol/L (3.5-5.1) Chloride Level 97 mmol/L (98-107) Carbon Dioxide Level 23 mmol/L (21-32) Anion Gap 17 (6-14) Blood Urea Nitrogen 91 mg/dL (7-20) Creatinine 14.1 mg/dL (0.6-1.0) Estimated GFR (Cockcroft-Gault) 2.8 BUN/Creatinine Ratio 6 (6-20) Glucose Level 126 mg/dL (70-99) Calcium Level 8.6 mg/dL (8.5-10.1) Total Bilirubin 0.3 mg/dL (0.2-1.0) Aspartate Amino Transf (AST/SGOT) 15 U/L (15-37) Alanine Aminotransferase (ALT/SGPT) 16 U/L (14-59) Alkaline Phosphatase 66 U/L (46-116) Total Protein 6.9 g/dL (6.4-8.2) Albumin 3.8 g/dL (3.4-5.0) Albumin/Globulin Ratio 1.2 (1.0-1.7) Laboratory Tests Test 08/23/19 23:27 08/24/19 05:24 White Blood Count 7.5 x10^3/uL (4.0-11.0) Red Blood Count 4.20 x10^6/uL (3.50-5.40) Hemoglobin 13.2 g/dL (12.0-15.5) Hematocrit 40.6 % (36.0-47.0) Mean Corpuscular Volume 97 fL (79-100) Mean Corpuscular Hemoglobin 32 pg (25-35) Mean Corpuscular Hemoglobin Concent 33 g/dL (31-37) Red Cell Distribution Width 20.1 % (11.5-14.5) Platelet Count 177 x10^3/uL (140-400) Neutrophils (%) (Auto) 62 % (31-73) Lymphocytes (%) (Auto) 28 % (24-48) Monocytes (%) (Auto) 6 % (0-9) Eosinophils (%) (Auto) 2 % (0-3) Basophils (%) (Auto) 1 % (0-3) Neutrophils # (Auto) 4.7 x10^3/uL (1.8-7.7) Lymphocytes # (Auto) 2.1 x10^3/uL (1.0-4.8) Monocytes # (Auto) 0.5 x10^3/uL (0.0-1.1) Eosinophils # (Auto) 0.1 x10^3/uL (0.0-0.7) Basophils # (Auto) 0.1 x10^3/uL (0.0-0.2) Platelet Estimate Adequate (ADEQUATE) Anisocytosis Mod Sodium Level 137 mmol/L (136-145) Potassium Level 6.3 mmol/L (3.5-5.1) 6.3 mmol/L (3.5-5.1) Chloride Level 97 mmol/L (98-107) Carbon Dioxide Level 23 mmol/L (21-32) Anion Gap 17 (6-14) Blood Urea Nitrogen 91 mg/dL (7-20) Creatinine 14.1 mg/dL (0.6-1.0) Estimated GFR (Cockcroft-Gault) 2.8 BUN/Creatinine Ratio 6 (6-20) Glucose Level 126 mg/dL (70-99) Calcium Level 8.6 mg/dL (8.5-10.1) Total Bilirubin 0.3 mg/dL (0.2-1.0) Aspartate Amino Transf (AST/SGOT) 15 U/L (15-37) Alanine Aminotransferase (ALT/SGPT) 16 U/L (14-59) Alkaline Phosphatase 66 U/L (46-116) Total Protein 6.9 g/dL (6.4-8.2) Albumin 3.8 g/dL (3.4-5.0) Albumin/Globulin Ratio 1.2 (1.0-1.7) VTE Prophylaxis Ordered VTE Prophylaxis Devices: No VTE Pharmacological Prophylaxi: Yes Assessment/Plan Assessment/Plan A/P: Acute hyperkalemia- dialysis today. Nephrology consulted. Low K diet Rectal pruritis - appears to be hemorrhoid related, will try topical treatment firt ESRD-TTS - Nephrology following Acute hypoxia - likely related to fluid overload, will wean as tolerated CHF-DIASTOLIC - acute due to VOLUME OVERLOAD H/O NON COMPLIANCE - ANEMIA OF ESRD Failed renal transplant - 16 years ago. ? HX OF DRUG USE COPD on chronic O2 - increased needs currently. Anxiety, Bipolar, Schizophrenia - cont home meds. Psych to help, she is very disorganized. Smoker - counseled on cessation, offered nicotine patch FEN - Renal diet PPX - heparin FULL CODE Dispo - inpatient likely 2 midnights. HOA CHERRY MD August 24, 2019 09:07
[2019-08-24] MEDS ORDERED: NICOTINE 21MG PATCH. TD PRN (09:09)
[2019-08-24] MEDS ORDERED: DEXTROSE 50% 25 GM / 50ML DISP.SYRIN. IV PRN (09:15)
[2019-08-24] MEDS ORDERED: HYDROcodone/APAP 5/325MG 1 TAB TABLET PO PRN (09:15)
[2019-08-24] MEDS ORDERED: 0.9 % SODIUM CHLORIDE 10 ML DISP.SYRIN. IV PRN ×2 (09:15)
[2019-08-24] MEDS ORDERED: ALBUMIN HUMAN 25% 200 ML IV PRN (09:15)
[2019-08-24] MEDS ORDERED: clonazePAM 0.5 MG TABLET PO PRN (09:15)
[2019-08-24] MEDS ORDERED: DIALYSIS PATIENT. MC PRN ×2 (09:15)
[2019-08-24] MEDS ORDERED: traZODone 100 MG TABLET. PO PRN (09:15)
[2019-08-24] MEDS ORDERED: ALBUTEROL SULFATE 2.5 MG/3 ML NEBU. NEB PRN (09:15)
--- NOTE | 2019-08-24 11:15 | PDOC2 ---
MYA VERA FLAG SIGNALER 08/24/19 1114: CARDIAC CONSULT DATE OF CONSULT Date of Consult DATE: 08/24/19 TIME: 11:09 REASON FOR CONSULT Reason for Consult: SVT REFERRING PHYSICIAN Referring Physician: Dr. Penn SOURCE Source: Chart review, Patient HISTORY OF PRESENT ILLNESS HISTORY OF PRESENT ILLNESS This is a 43 yo female, with a history of ESRD on HD and substance abuse, who presented secondary to itching. Was noted with tachycardia overnight, which prompted this consult. Patient denies any history of heart disease. Denies and chest pain, palpitations, dizziness, diaphoresis, or nausea/vomiting. Is quite t earful. PAST MEDICAL HISTORY Pulmonary: COPD Psych: Anxiety, Bipolar, Schizophrenia Renal/: Chronic renal failure (ESRD on HD) PAST SURGICAL HISTORY Past Surgical History: Other (renal transplant ) FAMILY HISTORY Family History: Hypertension SOCIAL HISTORY Smoke: <1 pack per day ALCOHOL: none Drugs: Crystal meth Lives: with Family CURRENT MEDICATIONS CURRENT MEDICATIONS Current Medications Medications (Trade) Dose Ordered Sig/Niko Route PRN Reason Start Time Stop Time Status Last Admin Dose Admin Hydrocortisone (Cortaid) 1 carlos 1X ONCE TP 08/24/19 00:00 08/24/19 00:01 DC 08/23/19 23:38 Sodium Polystyrene Sulfonate (Kayexalate) 15 gm 1X ONCE PO 08/24/19 01:00 08/24/19 01:01 DC 08/24/19 01:00 Insulin Human Regular (HumuLIN R VIAL) 10 unit 1X ONCE IV 08/24/19 01:00 08/24/19 01:01 DC 08/24/19 01:07 Dextrose (Dextrose 50%-Water Syringe) 25 gm 1X ONCE IV 08/24/19 01:00 08/24/19 01:01 DC 08/24/19 01:03 Sodium Bicarbonate (Sodium Bicarb Adult 8.4% Syr) 50 meq 1X ONCE IV 08/24/19 01:00 08/24/19 01:01 DC 08/24/19 01:03 Lorazepam (Ativan Inj) 2 mg 1X ONCE IVP 08/24/19 02:00 08/24/19 02:01 DC 08/24/19 01:49 Metoprolol Tartrate (Lopressor) 12.5 mg BID PO 08/24/19 05:00 08/24/19 06:32 ALLERGIES ALLERGIES: Coded Allergies: bee venom protein (honey bee) (Verified Allergy, Intermediate, 12/12/18) metoclopramide (Verified Allergy, Intermediate, 12/12/18) Sulfa (Sulfonamide Antibiotics) (Verified Adverse Reaction, Intermediate, STOMACH HURTS, 07/06/16) ROS Review of System 14 point ROS conducted with pertinent positives noted above in HPI PHYSICAL EXAM General: Alert, Oriented X3, Cooperative, No acute distress HEENT: Atraumatic, Mucous membr. moist/pink Lungs: Clear to auscultation Heart: Regular rate, Normal S1, Normal S2 Abdomen: Soft, No tenderness Extremities: No edema, Normal pulses Skin: No breakdown, No significant lesion Neuro: Normal speech, Sensation intact Psych/Mental Status: Other (tearful, anxious ) VITALS/I&O VITALS/I&O: Vital Signs Date Time Temp Pulse Resp B/P (MAP) Pulse Ox O2 Delivery O2 Flow Rate FiO2 08/24/19 08:00 Room Air 08/24/19 07:00 97.7 86 19 105/81 (89) 98 97.7 I & O 08/23/19 08/23/19 08/24/19 15:00 23:00 07:00 Intake Total 0 ml Balance 0 ml LABS Lab: Laboratory Tests Test 08/23/19 23:27 08/24/19 05:24 White Blood Count 7.5 x10^3/uL (4.0-11.0) Red Blood Count 4.20 x10^6/uL (3.50-5.40) Hemoglobin 13.2 g/dL (12.0-15.5) Hematocrit 40.6 % (36.0-47.0) Mean Corpuscular Volume 97 fL (79-100) Mean Corpuscular Hemoglobin 32 pg (25-35) Mean Corpuscular Hemoglobin Concent 33 g/dL (31-37) Red Cell Distribution Width 20.1 % (11.5-14.5) H Platelet Count 177 x10^3/uL (140-400) Neutrophils (%) (Auto) 62 % (31-73) Lymphocytes (%) (Auto) 28 % (24-48) Monocytes (%) (Auto) 6 % (0-9) Eosinophils (%) (Auto) 2 % (0-3) Basophils (%) (Auto) 1 % (0-3) Neutrophils # (Auto) 4.7 x10^3/uL (1.8-7.7) Lymphocytes # (Auto) 2.1 x10^3/uL (1.0-4.8) Monocytes # (Auto) 0.5 x10^3/uL (0.0-1.1) Eosinophils # (Auto) 0.1 x10^3/uL (0.0-0.7) Basophils # (Auto) 0.1 x10^3/uL (0.0-0.2) Platelet Estimate Adequate (ADEQUATE) Anisocytosis Mod Sodium Level 137 mmol/L (136-145) Potassium Level 6.3 mmol/L (3.5-5.1) *H 6.3 mmol/L (3.5-5.1) *H Chloride Level 97 mmol/L (98-107) L Carbon Dioxide Level 23 mmol/L (21-32) Anion Gap 17 (6-14) H Blood Urea Nitrogen 91 mg/dL (7-20) H Creatinine 14.1 mg/dL (0.6-1.0) H Estimated GFR (Cockcroft-Gault) 2.8 BUN/Creatinine Ratio 6 (6-20) Glucose Level 126 mg/dL (70-99) H Calcium Level 8.6 mg/dL (8.5-10.1) Total Bilirubin 0.3 mg/dL (0.2-1.0) Aspartate Amino Transferase (AST) 15 U/L (15-37) Alanine Aminotransferase (ALT) 16 U/L (14-59) Alkaline Phosphatase 66 U/L (46-116) Total Protein 6.9 g/dL (6.4-8.2) Albumin 3.8 g/dL (3.4-5.0) Albumin/Globulin Ratio 1.2 (1.0-1.7) Laboratory Tests 08/23/19 23:27 Laboratory Tests 08/23/19 23:27 08/24/19 05:24 ASSESSMENT/PLAN ASSESSMENT/PLAN 1. Pruritis 2. ESRD on HD 3. Hyperkalemia; s/p Kayexalate 4. Arrhythmia; SVT overnight. Now maintaining SR 5. Anxiety, depression, bipolar, schizophrenia 6. Substance abuse; methamphetamines. Reports last using a month ago 7. Tobaccoism; discussed/encourage cessation 8. H/o noncompliance Recommendations TSH, Mg level UF, fluid offloading via HD Baseline echo to assess LV systolic function Continue low-dose BB Supportive care JEROMY HAGAN MD 08/24/19 1612: CARDIAC CONSULT ASSESSMENT/PLAN ASSESSMENT/PLAN Patient seen and examined End-stage renal disease on hemodialysis. Seen during a dialysis run. Patient is feeling better. Management as per renal. Hyperkalemia. Treated with Kayexalate overnight. Now on a hemodialysis run. PSVT overnight. Now sinus rhythm. Contributing factors of hyperkalemia. Continue to monitor. Will check an echocardiogram for LV function. Low-dose beta-blockers. History of substance abuse. Continued tobacco abuse. Discussed with the patient. Thank you for allowing us to participate in the care of your patient. MYA VERA APRN August 24, 2019 11:14 JEROMY HAGAN MD August 24, 2019 16:12
--- NOTE | 2019-08-24 11:21 | PDOC2 ---
CONSULT Date of Consult Date of Consult DATE: 08/24/19 TIME: 11:13 Reason for Consult Reason for Consult: HIGH K Referring Physician Referring Physician: GIA Identification/Chief Complaint Chief Complaint ITCHING Source Source: Chart review, Patient History of Present Illness Reason for Visit: THIS IS A 43 YR OLD ESRD PT WITH OP HD ON TTS. SHE PRESENTS WITH C/O GLUTEAL PRURITUS. NOTED TO HAVE SEVERE HYPERKALEMIA AND ADMITTED. HX OF FAILED RENAL TX IN THE PAST. LABS ARE C/W ESRD. ALSO HX NOTABLE FOR METH USE. STATES SHE LAST DID IT A MONTH AGO. INITIALLY GIVEN KAYEXALATE, D50 AND INSULIN. LAST HX WAS ON 08-21-19. HAS HX OF NON COMPLIANCE Past Medical History Cardiovascular: HTN Pulmonary: COPD Heme/Onc: Anemia NOS Psych: Bipolar, Schizophrenia Musculoskeletal: Muscle atrophy, Weakness Renal/: Chronic renal failure, Other Endocrine: Hyperparathyroidism Past Surgical History Past Surgical History TDC AND AV ACCESS Family History Family History: No Significant, Hypertension Social History ALCOHOL: rare Drugs: Other Current Problem List Problem List Problems Medical Problems: (1) ESRD (end stage renal disease) on dialysis Status: Acute (2) Hyperkalemia Status: Acute Current Medications Current Medications Current Medications Hydrocortisone (Cortaid) 1 carlos 1X ONCE TP Last administered on 08/23/19at 23:38; Start 08/24/19 at 00:00; Stop 08/24/19 at 00:01; Status DC Sodium Polystyrene Sulfonate (Kayexalate) 15 gm 1X ONCE PO Last administered on 08/24/19at 01:00; Start 08/24/19 at 01:00; Stop 08/24/19 at 01:01; Status DC Insulin Human Regular (HumuLIN R VIAL) 10 unit 1X ONCE IV Last administered on 08/24/19at 01:07; Start 08/24/19 at 01:00; Stop 08/24/19 at 01:01; Status DC Dextrose (Dextrose 50%-Water Syringe) 25 gm 1X ONCE IV Last administered on 08/24/19at 01:03; Start 08/24/19 at 01:00; Stop 08/24/19 at 01:01; Status DC Sodium Bicarbonate (Sodium Bicarb Adult 8.4% Syr) 50 meq 1X ONCE IV Last administered on 08/24/19at 01:03; Start 08/24/19 at 01:00; Stop 08/24/19 at 01:01; Status DC Ondansetron HCl (Zofran) 4 mg PRN Q8HRS PRN IV NAUSEA/VOMITING 1ST CHOICE; Start 08/24/19 at 01:15; Stop 08/24/19 at 09:04; Status DC Lorazepam (Ativan Inj) 2 mg 1X ONCE IVP Last administered on 08/24/19at 01:49; Start 08/24/19 at 02:00; Stop 08/24/19 at 02:01; Status DC Metoprolol Tartrate (Lopressor) 12.5 mg BID PO Last administered on 08/24/19at 06:32; Start 08/24/19 at 05:00 Ondansetron HCl (Zofran) 4 mg PRN Q4HRS PRN IV NAUSEA/VOMITING 1ST CHOICE; Start 08/24/19 at 09:15 Albuterol Sulfate (Ventolin Neb Soln) 2.5 mg PRN Q4HRS PRN NEB SHORTNESS OF BREATH; Start 08/24/19 at 09:15 Acetaminophen/ Hydrocodone Bitart (Lortab 5/325) 1 tab PRN Q6HRS PRN PO PAIN; Start 08/24/19 at 09:15 Quetiapine Fumarate (SEROquel XR) 300 mg QHS PO ; Start 08/24/19 at 21:00 Ropinirole HCl (Requip) 0.25 mg HS PO ; Start 08/24/19 at 21:00 Trazodone HCl (Desyrel) 100 mg PRN QHS PRN PO INSOMNIA; Start 08/24/19 at 09:15 Clonazepam (KlonoPIN) 1 mg PRN Q8HRS PRN PO ANXIETY / AGITATION; Start 08/24/19 at 09:15 Nicotine (Nicoderm Cq 21mg) 1 patch PRN DAILY PRN TD SMOKING CESSATION; Start 08/24/19 at 09:09 Insulin Human Lispro (HumaLOG) 0-7 UNITS TIDACHC SQ ; Start 08/24/19 at 11:30 Dextrose (Dextrose 50%-Water Syringe) 12.5 gm PRN Q15MIN PRN IV SEE COMMENTS; Start 08/24/19 at 09:15 Sodium Chloride 1,000 ml @ 1,000 mls/hr Q1H PRN IV hypotension; Start 08/24/19 at 09:06; Stop 08/24/19 at 15:05 Albumin Human 200 ml @ 200 mls/hr 1X PRN PRN IV Hypotension; Start 08/24/19 at 09:15; Stop 08/24/19 at 15:14 Sodium Chloride (Normal Saline Flush) 10 ml 1X PRN PRN IV AP catheter pack; Start 08/24/19 at 09:15; Stop 08/25/19 at 09:14 Sodium Chloride (Normal Saline Flush) 10 ml 1X PRN PRN IV HYDROMETER TESTER catheter pack; Start 08/24/19 at 09:15; Stop 08/25/19 at 09:14 Sodium Chloride 1,000 ml @ 400 mls/hr Q2H30M PRN IV PATENCY; Start 08/24/19 at 09:06; Stop 08/24/19 at 21:05 Info (PHARMACY MONITORING -- do not chart) 1 each PRN DAILY PRN MC SEE COMMENTS; Start 08/24/19 at 09:15 Info (PHARMACY MONITORING -- do not chart) 1 each PRN DAILY PRN MC SEE COMMENTS; Start 08/24/19 at 09:15 Active Scripts Active [place] 5-325 Tablet (Acetaminophen/Hydrocodone Bitart) 1 Each Tablet 1 Tab PO PRN Q6HRS PRN [place] 5-325 Tablet (Acetaminophen/Hydrocodone Bitart) 1 Each Tablet 1 Tab PO Q6- 8HRS PRN [Nicotine 21MG] 1 PATCH Patch 1 Patch TD PRN DAILY PRN Proair Hfa (Albuterol Sulfate) 8.5 Gm Hfa.aer.ad 2.5 Mg NEB PRN Q4HRS PRN 30 Days Alprazolam 0.5 Mg Tablet 0.5 Mg PO PRN Q8HRS PRN Reported Clonazepam 1 Mg Tablet 1 Mg PO TID PRN PRN Trazodone Hcl 100 Mg Tablet 1 Tab PO PRN QHS PRN Requip (Ropinirole Hcl) 0.25 Mg Tablet 0.25 Mg PO HS Seroquel Xr (Quetiapine Fumarate) 300 Mg Tab.er.24h 1 Tab PO QHS Allergies Allergies: Coded Allergies: bee venom protein (honey bee) (Verified Allergy, Intermediate, 12/12/18) metoclopramide (Verified Allergy, Intermediate, 12/12/18) Sulfa (Sulfonamide Antibiotics) (Verified Adverse Reaction, Intermediate, STOMACH HURTS, 07/06/16) ROS General: YES: Fatigue, Appetite PSYCHOLOGICAL ROS: YES: Depression Eyes: Yes Decreased vision HEENT: YES: Heacaches Respiratory: YES: Cough Gastrointestinal: Yes Constipation Genitourinary: YES Other (ANURIA) Musculoskeletal: Yes Muscular Weakness Neurological: Yes Weakness Skin: Yes Dry Skin, Yes Pruritus Physical Exam General: Alert, Oriented X3, Cooperative, No acute distress HEENT: Atraumatic Lungs: Clear to auscultation Heart: Regular rate Abdomen: Normal bowel sounds, Soft, No tenderness Skin: No breakdown Neuro: Normal speech Psych/Mental Status: Mental status NL, Other (FLAT) MUSCULOSKELETAL: No deformity, No swelling Vitals VITALS Vital Signs Date Time Temp Pulse Resp B/P (MAP) Pulse Ox O2 Delivery O2 Flow Rate FiO2 08/24/19 08:00 Room Air 08/24/19 07:00 97.7 86 19 105/81 (89) 98 97.7 Labs Labs Laboratory Tests Test 08/23/19 23:27 08/24/19 05:24 White Blood Count 7.5 x10^3/uL (4.0-11.0) Red Blood Count 4.20 x10^6/uL (3.50-5.40) Hemoglobin 13.2 g/dL (12.0-15.5) Hematocrit 40.6 % (36.0-47.0) Mean Corpuscular Volume 97 fL (79-100) Mean Corpuscular Hemoglobin 32 pg (25-35) Mean Corpuscular Hemoglobin Concent 33 g/dL (31-37) Red Cell Distribution Width 20.1 % (11.5-14.5) Platelet Count 177 x10^3/uL (140-400) Neutrophils (%) (Auto) 62 % (31-73) Lymphocytes (%) (Auto) 28 % (24-48) Monocytes (%) (Auto) 6 % (0-9) Eosinophils (%) (Auto) 2 % (0-3) Basophils (%) (Auto) 1 % (0-3) Neutrophils # (Auto) 4.7 x10^3/uL (1.8-7.7) Lymphocytes # (Auto) 2.1 x10^3/uL (1.0-4.8) Monocytes # (Auto) 0.5 x10^3/uL (0.0-1.1) Eosinophils # (Auto) 0.1 x10^3/uL (0.0-0.7) Basophils # (Auto) 0.1 x10^3/uL (0.0-0.2) Platelet Estimate Adequate (ADEQUATE) Anisocytosis Mod Sodium Level 137 mmol/L (136-145) Potassium Level 6.3 mmol/L (3.5-5.1) 6.3 mmol/L (3.5-5.1) Chloride Level 97 mmol/L (98-107) Carbon Dioxide Level 23 mmol/L (21-32) Anion Gap 17 (6-14) Blood Urea Nitrogen 91 mg/dL (7-20) Creatinine 14.1 mg/dL (0.6-1.0) Estimated GFR (Cockcroft-Gault) 2.8 BUN/Creatinine Ratio 6 (6-20) Glucose Level 126 mg/dL (70-99) Calcium Level 8.6 mg/dL (8.5-10.1) Total Bilirubin 0.3 mg/dL (0.2-1.0) Aspartate Amino Transf (AST/SGOT) 15 U/L (15-37) Alanine Aminotransferase (ALT/SGPT) 16 U/L (14-59) Alkaline Phosphatase 66 U/L (46-116) Total Protein 6.9 g/dL (6.4-8.2) Albumin 3.8 g/dL (3.4-5.0) Albumin/Globulin Ratio 1.2 (1.0-1.7) Laboratory Tests Test 08/23/19 23:27 08/24/19 05:24 White Blood Count 7.5 x10^3/uL (4.0-11.0) Red Blood Count 4.20 x10^6/uL (3.50-5.40) Hemoglobin 13.2 g/dL (12.0-15.5) Hematocrit 40.6 % (36.0-47.0) Mean Corpuscular Volume 97 fL (79-100) Mean Corpuscular Hemoglobin 32 pg (25-35) Mean Corpuscular Hemoglobin Concent 33 g/dL (31-37) Red Cell Distribution Width 20.1 % (11.5-14.5) Platelet Count 177 x10^3/uL (140-400) Neutrophils (%) (Auto) 62 % (31-73) Lymphocytes (%) (Auto) 28 % (24-48) Monocytes (%) (Auto) 6 % (0-9) Eosinophils (%) (Auto) 2 % (0-3) Basophils (%) (Auto) 1 % (0-3) Neutrophils # (Auto) 4.7 x10^3/uL (1.8-7.7) Lymphocytes # (Auto) 2.1 x10^3/uL (1.0-4.8) Monocytes # (Auto) 0.5 x10^3/uL (0.0-1.1) Eosinophils # (Auto) 0.1 x10^3/uL (0.0-0.7) Basophils # (Auto) 0.1 x10^3/uL (0.0-0.2) Platelet Estimate Adequate (ADEQUATE) Anisocytosis Mod Sodium Level 137 mmol/L (136-145) Potassium Level 6.3 mmol/L (3.5-5.1) 6.3 mmol/L (3.5-5.1) Chloride Level 97 mmol/L (98-107) Carbon Dioxide Level 23 mmol/L (21-32) Anion Gap 17 (6-14) Blood Urea Nitrogen 91 mg/dL (7-20) Creatinine 14.1 mg/dL (0.6-1.0) Estimated GFR (Cockcroft-Gault) 2.8 BUN/Creatinine Ratio 6 (6-20) Glucose Level 126 mg/dL (70-99) Calcium Level 8.6 mg/dL (8.5-10.1) Total Bilirubin 0.3 mg/dL (0.2-1.0) Aspartate Amino Transf (AST/SGOT) 15 U/L (15-37) Alanine Aminotransferase (ALT/SGPT) 16 U/L (14-59) Alkaline Phosphatase 66 U/L (46-116) Total Protein 6.9 g/dL (6.4-8.2) Albumin 3.8 g/dL (3.4-5.0) Albumin/Globulin Ratio 1.2 (1.0-1.7) Assessment/Plan Assessment/Plan IMP HYPERKALEMIA ESRD ANEMIA HYPOXIA HYPERVOLEMIMA CHF-DIASTOLIC NON COMPLIANCE REMOTE HX OF TX FAILURE-15 YRS AGO COPD WITH O2 NEEDS PLAN EMERGENT HD TODAY UF TO DW VANDANA NEEDED ENC COMPLIANCE MITCH RIVERA MD August 24, 2019 11:21
[2019-08-24] MEDS ORDERED: HYDROCORTISONE 1% TOPICAL OINTMENT 30GM TUBE. TP PRN (12:45)
[2019-08-24] MEDS ORDERED: CALC667T4 PO (13:07)
[2019-08-24] MEDS: INSULIN LISPRO 300 UNITS/3 ML VIAL. SQ SCH ×3 (13:20→20:52)
[2019-08-24] MEDS: CALCIUM ACETATE 667 MG CAPSULE PO SCH ×2 (13:32→18:02)
--- NOTE | 2019-08-24 14:08 | NUR ---
SS following up with discharge planning. SS reviewed pt chart and discussed with pt RN. Pt is from home and is currently on room air. Pt has psych history. SS discussed referral to psychiatrist with physician. Pt has outpatient dialysis at [facility], ; fax [phone], Friday, , and Friday. [facility] reported that they are not requiring COVID19 test at this time. SS will continue to follow for discharge planning.
[2019-08-24] MEDS ORDERED: PHENYLEPH/MINERAL OIL/PETROLAT RECTAL OINTMENT TUBE. RC PRN (14:15)
[2019-08-24 15:01] VITALS: BP 103/54
[2019-08-24] MEDS ORDERED: ASPIRIN ENTERIC COATED 81 MG TABLET.DR. PO SCH (16:00)
--- NOTE | 2019-08-24 19:37 | PDOC1 ---
History & Psych Evaluation Date of Admission: Date of Admission DATE: 08/24/19 TIME: 19:19 Source: Source: Caregiver, Chart review, Patient Identification: Identification She is a 43-year-old female admitted with hyperkalemia. Chief Complaint: Chief Complaint Disorganized thought process, history of bipolar mood disorder, schizophrenia, and anxiety disorder. History of Present Illness: HPI: She is a 43-year-old female with a history of bipolar mood disorder, schizophrenia, anxiety disorder admitted with hyperkalemia. She has end-stage renal disease. She is evaluated for disorganized thought process and behavior. Upon interview, she appears incoherent, disorganized, in severe distress. She is tearful, crying, and difficult to engage in interview process. Stating, she is in a lot of pain " I cannot take care of myself". States, she has history of depression and bipolar mood disorder. She has been followed at [facility]. She is ruminating " there is lot going on in my life I can discuss". She appears frustrated with questions stating " that is too much I c annot talk". States, she was prescribed Seroquel, reporting noncompliant behavior. Endorsing depression as " very deep". Depression is rated as 8/10 10 is worse. Endorsing high anxiety with palpitation and sweating. She denies suicidal ideation or self-harm thoughts. However, endorsing she does have a history of suicidal thoughts previously. She denies history of prior suicidal attempts. States, she has always been told that she has bipolar mood disorder based on symptoms including frequent mood oscillations, anger dyscontrol and irritability. Denies auditory or visual hallucinations. Past Psychiatric History: Diagnosed with bipolar mood disorder, anxiety disorder and schizophrenia. Denies history of psychiatric hospital admission. Denies previous history of suicidal attempt. Past Medical History: Please see medical chart for details. Family History: Family history of psychiatric illness is not known to the patient. Social History: Social History: Reportedly, boyfriend is in correction. She is living with her ex-boyfriend. She is a smoker, uses alcohol occasionally. She denies illicit substance use. Current Medications: Current Medications Current Medications Medications (Trade) Dose Ordered Sig/Niko Start Time Stop Time Status Last Admin Dose Admin Acetaminophen/ Hydrocodone Bitart (Lortab 5/325) 1 tab PRN Q6HRS PRN 5/26/20 09:15 Albumin Human 200 ml @ 200 mls/hr 1X PRN PRN 08/24/19 09:15 08/24/19 15:14 DC Albuterol Sulfate (Ventolin Neb Soln) 2.5 mg PRN Q4HRS PRN 08/24/19 09:15 Aspirin (Ecotrin) 81 mg [id number] 08/24/19 16:00 08/24/19 18:02 81 MG Calcium Acetate (Phoslo) 2,001 mg TIDWMEALS 08/24/19 13:30 08/24/19 18:02 2,001 MG Clonazepam (KlonoPIN) 1 mg PRN Q8HRS PRN 08/24/19 09:15 08/24/19 13:37 1 MG Dextrose (Dextrose 50%-Water Syringe) 12.5 gm PRN Q15MIN PRN 08/24/19 09:15 Hydrocortisone (Cortaid) 1 carlos PRN BID PRN 08/24/19 12:45 Info (PHARMACY MONITORING -- do not chart) 1 each PRN DAILY PRN 08/24/19 09:15 Insulin Human Lispro (HumaLOG) 0-7 UNITS TIDACHC 08/24/19 11:30 Insulin Human Regular (HumuLIN R VIAL) 10 unit 1X ONCE 08/24/19 01:00 08/24/19 01:01 DC 08/24/19 01:07 10 UNIT Lorazepam (Ativan Inj) 2 mg 1X ONCE 08/24/19 02:00 08/24/19 02:01 DC 08/24/19 01:49 2 MG Metoprolol Tartrate (Lopressor) 12.5 mg BID 08/24/19 05:00 08/24/19 06:32 12.5 MG Nicotine (Nicoderm Cq 21mg) 1 patch PRN DAILY PRN 08/24/19 09:09 Ondansetron HCl (Zofran) 4 mg PRN Q4HRS PRN 08/24/19 09:15 Phenyleph/Shark Oil/Min Oil/Petrol (Preparation H) 1 carlos PRN QID PRN 08/24/19 14:15 Quetiapine Fumarate (SEROquel XR) 300 mg QHS 08/24/19 21:00 Ropinirole HCl (Requip) 0.25 mg HS 08/24/19 21:00 Sodium Polystyrene Sulfonate (Kayexalate) 15 gm 1X ONCE 08/24/19 01:00 08/24/19 01:01 DC 08/24/19 01:00 15 GM Sodium Bicarbonate (Sodium Bicarb Adult 8.4% Syr) 50 meq 1X ONCE 08/24/19 01:00 08/24/19 01:01 DC 08/24/19 01:03 50 MEQ Sodium Chloride 1,000 ml @ 400 mls/hr Q2H30M PRN 08/24/19 09:06 08/24/19 21:05 Sodium Chloride (Normal Saline Flush) 10 ml 1X PRN PRN 08/24/19 09:15 08/25/19 09:14 Trazodone HCl (Desyrel) 100 mg PRN QHS PRN 08/24/19 09:15 Allergies: Allergies: Coded Allergies: bee venom protein (honey bee) (Verified Allergy, Intermediate, 12/12/18) metoclopramide (Verified Allergy, Intermediate, 12/12/18) Sulfa (Sulfonamide Antibiotics) (Verified Adverse Reaction, Intermediate, STOMACH HURTS, 07/06/16) Mental Status Examination: Mental Status Examination 43-year-old female, appears older than his stated age, disheveled Confused, disoriented, not very cooperative Speech is rambling, Thought processes incoherent, disorganized Denies auditory or visual hallucinations. Denies suicidal or homicidal thoughts. Mood is depressed and irritable. Affect is dysphoric. Insight is limited Impulse control is fair Judgment is fair. Attention span and concentration impaired Memory recent is impaired ROS: PSYCHIATRIC: Psychiatric review of system is positive for disorientation, confusion, altered mental status, depression, anxiety,. Physical Exam: Refer to Physician's note. DOCK OPERATIONS SUPERVISOR: No focal deficit MSK: No EPS, TDK, or abnormal involuntary movements Vitals: Vitals Vital Signs Date Time Temp Pulse Resp B/P (MAP) Pulse Ox O2 Delivery O2 Flow Rate FiO2 08/24/19 15:04 97 Room Air 08/24/19 15:01 98.5 79 17 103/54 (70) 98.5 Labs: Labs Laboratory Tests Test 08/23/19 23:27 08/24/19 05:24 08/24/19 13:08 08/24/19 16:21 White Blood Count 7.5 x10^3/uL (4.0-11.0) Red Blood Count 4.20 x10^6/uL (3.50-5.40) Hemoglobin 13.2 g/dL (12.0-15.5) Hematocrit 40.6 % (36.0-47.0) Mean Corpuscular Volume 97 fL (79-100) Mean Corpuscular Hemoglobin 32 pg (25-35) Mean Corpuscular Hemoglobin Concent 33 g/dL (31-37) Red Cell Distribution Width 20.1 % (11.5-14.5) Platelet Count 177 x10^3/uL (140-400) Neutrophils (%) (Auto) 62 % (31-73) Lymphocytes (%) (Auto) 28 % (24-48) Monocytes (%) (Auto) 6 % (0-9) Eosinophils (%) (Auto) 2 % (0-3) Basophils (%) (Auto) 1 % (0-3) Neutrophils # (Auto) 4.7 x10^3/uL (1.8-7.7) Lymphocytes # (Auto) 2.1 x10^3/uL (1.0-4.8) Monocytes # (Auto) 0.5 x10^3/uL (0.0-1.1) Eosinophils # (Auto) 0.1 x10^3/uL (0.0-0.7) Basophils # (Auto) 0.1 x10^3/uL (0.0-0.2) Platelet Estimate Adequate (ADEQUATE) Anisocytosis Mod Sodium Level 137 mmol/L (136-145) Potassium Level 6.3 mmol/L (3.5-5.1) 6.3 mmol/L (3.5-5.1) Chloride Level 97 mmol/L (98-107) Carbon Dioxide Level 23 mmol/L (21-32) Anion Gap 17 (6-14) Blood Urea Nitrogen 91 mg/dL (7-20) Creatinine 14.1 mg/dL (0.6-1.0) Estimated GFR (Cockcroft-Gault) 2.8 BUN/Creatinine Ratio 6 (6-20) Glucose Level 126 mg/dL (70-99) Calcium Level 8.6 mg/dL (8.5-10.1) Total Bilirubin 0.3 mg/dL (0.2-1.0) Aspartate Amino Transf (AST/SGOT) 15 U/L (15-37) Alanine Aminotransferase (ALT/SGPT) 16 U/L (14-59) Alkaline Phosphatase 66 U/L (46-116) Total Protein 6.9 g/dL (6.4-8.2) Albumin 3.8 g/dL (3.4-5.0) Albumin/Globulin Ratio 1.2 (1.0-1.7) Magnesium Level 2.8 mg/dL (1.8-2.4) Thyroid Stimulating Hormone (TSH) 2.959 uIU/mL (0.358-3.74) Glucose (Fingerstick) 132 mg/dL (70-99) 150 mg/dL (70-99) Laboratory Tests Test 08/23/19 23:27 08/24/19 05:24 08/24/19 13:08 08/24/19 16:21 White Blood Count 7.5 x10^3/uL (4.0-11.0) Red Blood Count 4.20 x10^6/uL (3.50-5.40) Hemoglobin 13.2 g/dL (12.0-15.5) Hematocrit 40.6 % (36.0-47.0) Mean Corpuscular Volume 97 fL (79-100) Mean Corpuscular Hemoglobin 32 pg (25-35) Mean Corpuscular Hemoglobin Concent 33 g/dL (31-37) Red Cell Distribution Width 20.1 % (11.5-14.5) Platelet Count 177 x10^3/uL (140-400) Neutrophils (%) (Auto) 62 % (31-73) Lymphocytes (%) (Auto) 28 % (24-48) Monocytes (%) (Auto) 6 % (0-9) Eosinophils (%) (Auto) 2 % (0-3) Basophils (%) (Auto) 1 % (0-3) Neutrophils # (Auto) 4.7 x10^3/uL (1.8-7.7) Lymphocytes # (Auto) 2.1 x10^3/uL (1.0-4.8) Monocytes # (Auto) 0.5 x10^3/uL (0.0-1.1) Eosinophils # (Auto) 0.1 x10^3/uL (0.0-0.7) Basophils # (Auto) 0.1 x10^3/uL (0.0-0.2) Platelet Estimate Adequate (ADEQUATE) Anisocytosis Mod Sodium Level 137 mmol/L (136-145) Potassium Level 6.3 mmol/L (3.5-5.1) 6.3 mmol/L (3.5-5.1) Chloride Level 97 mmol/L (98-107) Carbon Dioxide Level 23 mmol/L (21-32) Anion Gap 17 (6-14) Blood Urea Nitrogen 91 mg/dL (7-20) Creatinine 14.1 mg/dL (0.6-1.0) Estimated GFR (Cockcroft-Gault) 2.8 BUN/Creatinine Ratio 6 (6-20) Glucose Level 126 mg/dL (70-99) Calcium Level 8.6 mg/dL (8.5-10.1) Total Bilirubin 0.3 mg/dL (0.2-1.0) Aspartate Amino Transf (AST/SGOT) 15 U/L (15-37) Alanine Aminotransferase (ALT/SGPT) 16 U/L (14-59) Alkaline Phosphatase 66 U/L (46-116) Total Protein 6.9 g/dL (6.4-8.2) Albumin 3.8 g/dL (3.4-5.0) Albumin/Globulin Ratio 1.2 (1.0-1.7) Magnesium Level 2.8 mg/dL (1.8-2.4) Thyroid Stimulating Hormone (TSH) 2.959 uIU/mL (0.358-3.74) Glucose (Fingerstick) 132 mg/dL (70-99) 150 mg/dL (70-99) Diagnosis: Diagnosis: 1unspecified, bipolar mood disorder 2altered mental status likely delirium 3unspecified depression, rule out major depressive disorder 4unspecified anxiety disorder rule out generalized anxiety disorder. Assessment: 43-year-old female appears disorganized, incoherent and confused likely is to delirium which appears to be multifactorial. She is depressed and highly anxious. She is not very receptive to medication changes recommended including replacing Seroquel with Zyprexa. She did not want any change in her medication including dose increments. Plan: 1continue psychotropic medications as prescribed. 2-recommending Zyprexa of 5 mg at bedtime for better mood stability and resolution of delirium. 3-risks, benefits, alternatives of the treatment discussed. 4-follow-up with outpatient mental health provider following discharge. Thank you for involving inpatient care. FILIBERTO GALVEZ MD August 24, 2019 19:37
[2019-08-24 19:38] VITALS: BP 93/35
[2019-08-24 20:52] VITALS: BP 93/35
[2019-08-24] MEDS ORDERED: rOPINIRole 0.25 MG TABLET. PO SCH (21:00)
[2019-08-24] MEDS ORDERED: QUEtiapine 300 MG TAB.ER.24H. PO SCH (21:00)
--- NOTE | 2019-08-24 21:46 | NUR ---
a medication capsule was found on the patient's floor by the MAMMOGRAPHY SUPERVISOR. The capsule is half white and half blue with [facility] written on the blue part and 667 written on the white part. This RN called Pharmacy and verified that the pill is a calcium acetate 667 mg capsule. This RN disposed of the cap into the RX destroyer.
--- NOTE | 2019-08-24 22:48 | NUR ---
Patient has left AMA at 2240. This RN explained to the patient the importance of staying until her lab results came back, patient refused and started to pack her belongings. Patient left with all of her belongings, including a suitcase, a black tote bag, a large aletha bear, and a green patient bag with multiple tumbler cups in it. The medications that were sent to pharmacy earlier today were returned to the patient at this time as well. This RN and a security checker walked the patient to the ED entrance where the patient's significant other picked the patient up and left.
== END 2019-08-24 23:06 | disposition left against medical advice (07) | DRG 640 ==
LOC: ER 22:35 → 6 SOUTH 08-24 01:44
PROVIDERS: ADMIT Internal Medicine; ATTEND Internal Medicine
PROC: 5A1D70Z Performance of Urinary Filtration, Intermittent, Less than 6 Hours Per Day (ICD-10-PCS; principal; 2019-08-24)
DX: E87.5 Hyperkalemia (principal); N18.6 End stage renal disease; I13.2 Hypertensive heart and chronic kidney disease with heart failure and with stage 5 chronic kidney disease, or end stage renal disease; I47.1 Supraventricular tachycardia; I50.30 Unspecified diastolic (congestive) heart failure; Z94.0 Kidney transplant status; D63.1 Anemia in chronic kidney disease; F15.10 Other stimulant abuse, uncomplicated; F17.210 Nicotine dependence, cigarettes, uncomplicated; F20.9 Schizophrenia, unspecified; F31.9 Bipolar disorder, unspecified; F41.0 Panic disorder [episodic paroxysmal anxiety]; J44.9 Chronic obstructive pulmonary disease, unspecified; L29.9 Pruritus, unspecified; R09.02 Hypoxemia; Z53.21 Procedure and treatment not carried out due to patient leaving prior to being seen by health care provider; Z82.49 Family history of ischemic heart disease and other diseases of the circulatory system; Z91.19 Patient's noncompliance with other medical treatment and regimen; Z99.2 Dependence on renal dialysis; Z99.81 Dependence on supplemental oxygen; Z91.030 Bee allergy status; Z88.2 Allergy status to sulfonamides; Z91.09 Other allergy status, other than to drugs and biological substances; Z71.6 Tobacco abuse counseling
CPT/HCPCS: 36415; 80053; 82962; 83735; 84132; 84443; 85025; 93005; 94760; J1815; J2060; J3490; J7042; G0378

== ENCOUNTER 2020-07-30 20:32 | Emergency (ER) | payer OTHER ==
[~2020-07-30] VITALS: Ht 167.6 cm; Wt 60.0 kg
[~2020-07-30 20:32] MED LIST changes: +CALC667T4 PO
--- NOTE | 2020-07-30 20:59 | PHYS DOC ---
Past Medical History Past Medical History: Anxiety, Bipolar, COPD, Renal Failure, Schizophrenia, Other Additional Past Medical Histor: PANIC ATTACKS,PSYCHOTIC TENDENCIES,PARALYZED STOMACH Past Surgical History: No Surgical History, Other Additional Past Surgical Histo: KIDNEY TRANSPLANT,FISTULA L ARM,FUNDIPLICATION Smoking Status: Current Every Day Smoker Alcohol Use: None Drug Use: Marijuana General Adult EDM: Chief Complaint: DENTAL PROBLEM HPI: HPI: Patient is a 44yo female with complicated medical history presenting for dental problem. History of poor dentition and known dental carries, feels several are infected as they feel similar to prior episodes of acute infection. No fever but reports gingival irritation and swelling. No abscess or other concerning findings but patient has history of this. She called dentist but unable to be seen until next week. She is requesting antibiotics and magic mouthwash Review of Systems: Review of Systems: Fourteen body systems of review of systems have been reviewed. See HPI for pertinent positives and negative responses, other parekh all other systems are negative, non-pertinent or non-contributory Heart Score: C/O Chest Pain: No Risk Factors: Risk Factors: DM, Current or recent (<one month) smoker, HTN, HLP, family history of CAD, obesity. Risk Scores: Score 0 - 3: 2.5% MACE over next 6 weeks - Discharge Home Score 4 - 6: 20.3% MACE over next 6 weeks - Admit for Clinical Observation Score 7 - 10: 72.7% MACE over next 6 weeks - Early Invasive Strategies Allergies: Allergies: Allergies Coded Allergies Type Severity Reaction Last Updated Verified bee venom protein (honey bee) Allergy Intermediate 12/12/18 Yes metoclopramide Allergy Intermediate 12/12/18 Yes Sulfa (Sulfonamide Antibiotics) Adverse Reaction Intermediate STOMACH HURTS 07/06/16 Yes Physical Exam: PE: Constitutional: Well developed, well nourished, no acute distress, non-toxic appearance. HENT: Normocephalic, atraumatic, bilateral external ears normal, oropharynx dry, poor dentition with numerous dental carries several of which are infected without obvious abscess or other concerning dental findings, no oral exudates, nose normal. Eyes: PERRLA, EOMI, conjunctiva normal, no discharge. Neck: Normal range of motion, no tenderness, supple, no stridor. Cardiovascular: Heart rate regular per monitor Lungs & Thorax: No respiratory distress or accessory muscle use, bilateral chest rise Abdomen: Abdomen soft, non-tender, bowel sounds present in all quadrants, no guarding or rebound, nonacute abdomen. Skin: Warm, dry, no erythema, no rash. Back: No tenderness, no CVA tenderness. Extremities: No tenderness, no cyanosis, no clubbing, ROM intact, no edema. Neurologic: Alert and oriented X 3, grossly normal motor & sensory function, no focal deficits noted. Psychologic: Pressured speech Current Patient Data: Vital Signs: Vital Signs Date Time Temp Pulse Resp B/P (MAP) Pulse Ox O2 Delivery O2 Flow Rate FiO2 07/30/20 20:38 98.7 90 20 136/73 (94) 96 Room Air 98.7 Vital Signs Date Time Temp Pulse Resp B/P (MAP) Pulse Ox O2 Delivery O2 Flow Rate FiO2 07/30/20 21:35 89 20 121/69 (86) 96 Room Air 07/30/20 20:38 98.7 98.7 EKG: EKG: [] Radiology/Procedures: Radiology/Procedures: [] Course & Med Decision Making: Course & Med Decision Making VSS. HPI and PE concerning for infected dental carries Antibiotics started in high-risk patient on ESRD. Magic mouthwash given in ER with significant improvement in patient's pain Advised close PCP and dentist follow-up for continued care. Strict return precautions discussed with good understanding prior to departure Levi Disclaimer: Levi Disclaimer: This electronic medical record was generated, in whole or in part, using a voice recognition dictation system. Departure Departure Impression: Primary Impression: Infected dental caries Disposition: HOME / SELF CARE / HOMELESS Condition: STABLE Referrals: TRISTON GUERRERO (PCP) Patient Instructions: Dental Abscess Additional Instructions: You were seen for dental pain. You are high risk for infection and there does appear to be developing infection in several of your dental caries. As such, please use Magic mouthwash that was given to you prior to departure, take this as scheduled in addition to prescribed antibiotic. You are requesting a pill of Diflucan, this is a high risk medication and is not routinely prescribed with administration of antibiotics. If you feel you are developing a yeast infection with these antibiotics that it is advised to seek medical attention from your primary care physician or other healthcare provider for evaluation. You should return to the ED if you develop worsening pain, fever > 101, swelling, redness, or any other new or concerning symptoms. Unfortunately, your pain is not likely to improve without seeing a dentist for further evaluation and treatment of your poor dentition and dental caries. Scripts Amoxicillin (AMOXICILLIN) 500 Mg Tablet 1 TAB PO TID for 7 Days, #21 TAB Prov: COLTEN HICKEY DO 07/30/20 COLTEN HICKEY DO July 30, 2020 20:59
[2020-07-30] MEDS ORDERED: AMOX500T PO (21:10)
[2020-07-30] MEDS ORDERED: LIDO:MAALOX:BENADRYL 1:1:1 180 ML BOTTLE. PO PRN (21:15)
[2020-07-30] MEDS ORDERED: AMOXICILLIN 250 MG CAPSULE. PO ONE (21:15)
[2020-07-30 21:35] VITALS: BP 121/69
== END 2020-07-30 21:38 | disposition home or self-care (01) ==
LOC: ER 20:32
DX: K04.7 Periapical abscess without sinus (principal); F31.9 Bipolar disorder, unspecified; J44.9 Chronic obstructive pulmonary disease, unspecified; F20.9 Schizophrenia, unspecified; F17.200 Nicotine dependence, unspecified, uncomplicated; Z88.2 Allergy status to sulfonamides; Z88.1 Allergy status to other antibiotic agents; Z91.030 Bee allergy status
CPT/HCPCS: 99283

== ENCOUNTER 2020-10-06 22:50 | Emergency (ER) | payer MEDICARE, OTHER ==
[~2020-10-06 22:50] MED LIST changes: +AMOX500T PO
== END 2020-10-07 00:28 | disposition left against medical advice (07) ==
LOC: ER 22:50
DX: K08.89 Other specified disorders of teeth and supporting structures (principal); M79.642 Pain in left hand; Z53.21 Procedure and treatment not carried out due to patient leaving prior to being seen by health care provider